=== PATIENT | female | born 1955 | race Caucasian/White ===

== ENCOUNTER 2018-01-20 10:54 | Outpatient (CLI) | payer BC, OTHER | END 2018-01-20 10:55 | disposition home or self-care (01) | LOC: BICMAMMO 10:54 | PROVIDERS: ATTEND Internal Medicine Rheumatology | DX: M81.0 Age-related osteoporosis without current pathological fracture (principal); M85.88 Other specified disorders of bone density and structure, other site | CPT/HCPCS: 77080 ==

== ENCOUNTER 2018-08-07 11:50 | Outpatient (CLI) | payer BC, OTHER ==
--- NOTE | 2018-08-07 13:36 | RAD ---
2 VIEW CHEST: Date: 08/07/18 COMPARISON: 06/29/08. INDICATION: Shortness of breath. History of tobacco use. Family history of malignant neoplasm. FINDINGS: There are multiple metallic clips at the left upper quadrant. Lungs are hyperinflated. There is mild patchy density at the lung bases, which may be related to atelectasis. Cardiac silhouette is within n ormal limits of size. There is vascular calcification and osseous degenerative change. IMPRESSION: COPD. POS: [facility]
== END 2018-08-07 11:51 | disposition home or self-care (01) ==
LOC: BICRAD 11:50
PROVIDERS: ATTEND Family Medicine
DX: R06.02 Shortness of breath (principal); J44.9 Chronic obstructive pulmonary disease, unspecified; Z72.0 Tobacco use; Z80.1 Family history of malignant neoplasm of trachea, bronchus and lung
CPT/HCPCS: 71046

== ENCOUNTER 2018-08-11 14:39 | Outpatient (CLI) | payer BC, OTHER ==
--- NOTE | 2018-08-11 16:16 | ULT ---
LEFT UPPER BUTTOCK SOFT TISSUE PROMINENCE: TECHNIQUE: Starkey-scale and color Doppler images were obtained of the palpable region of interest overlying the le ft upper buttock and lower back region. COMPARISON: CT lumbar spine dated 05/12/2014. FINDINGS: There is a large, nonvascularized, heterogeneous soft tissue and fluid collection within the subcutan eous tissues underlying the palpable regions of interest with surrounding subcutaneous edema. Overal l, the findings are suspicious for an intramuscular hematoma versus an abscess. The collection measu res approximately 6.9 x 8.2 cm. IMPRESSION: Large heterogeneous fluid collection within the subcutaneous tissues, overlying the left upper buttoc k and lower back region. Findings may reflect a large intramuscular hematoma versus an abscess. Recommend correlation with clinical examination. If clinically indicated, further evaluation with MR I with and without contrast may be helpful for additional characterization. Malignancy is not entire ly excluded but is felt to be less likely. POS: [facility]
== END 2018-08-11 14:40 | disposition home or self-care (01) ==
LOC: BICULT 14:39
PROVIDERS: ATTEND Family Medicine
DX: M25.452 Effusion, left hip (principal)
CPT/HCPCS: 76999

== ENCOUNTER 2018-08-28 14:53 | Outpatient (CLI) | payer BC, OTHER ==
--- NOTE | 2018-08-28 16:06 | RAD ---
HISTORY: Multiple myeloma. Skeletal survey including lateral views skull, AP and lateral views thoracic spine, lumbar spine, cer vical spine, AP view pelvis, AP view right and left femur and AP view right and left tibia and fibul a and AP view right and left humeri and forearms. RADIOGRAPHIC FINDINGS: An area of bone infarction or enchondroma is seen in the distal left femur. No other definite lytic bony changes seen. Extensive lumbosacral fusion hardware is present. Mid cervical changes of spondylosis seen. There is anterolisthesis of L4 on L5 and L5 on S1. IMPRESSION: No definite evidence of lytic bony changes seen to the chest. POS: [facility]
== END 2018-08-28 14:54 | disposition home or self-care (01) ==
LOC: BICRAD 14:53
PROVIDERS: ATTEND Internal Medicine Hematology & Oncology
DX: D47.2 Monoclonal gammopathy (principal); C90.00 Multiple myeloma not having achieved remission
CPT/HCPCS: 36415; 77075; 85810; 86704; 86705; 86706; 86707; 86803; 87340; 87350

== ENCOUNTER 2018-09-01 07:54 | Outpatient (CLI) | payer BC, OTHER ==
--- NOTE | 2018-09-01 10:57 | CT ---
CT OF THE CHEST AND ABDOMEN AND PELVIS WITH IV CONTRAST: INDICATION: A 63-year-old female with lymphadenopathy and chest pain between the shoulder blades. The patient lucas s a history of cholecystectomy and gastric bypass. The patient has also had umbilical hernia repair and a hysterectomy. COMPARISON: Soft tissue ultrasound examination dated 08/11/2018. FINDINGS: CHEST: There are areas of subsegmental atelectasis within the right upper lobe as well as portions of the li ngula. There is scattered emphysema. No suspicious pulmonary nodule or pleural effusion is evident. There is scattered coronary artery thoracic aorta calcifications. Contrast within the distal esophag us may reflect reflux or dysmotility. There is a 1.4 cm pretracheal lymph node on image 22 of series 2. No additional pathologically enlarged lymph node is evident. ABDOMEN AND PELVIS: There are postsurgical changes of a prior gastric bypass. No focal hepatic lesion is evident. The ga llbladder is surgically absent. There is slight hypertrophy of the left adrenal gland. There are ti ny subcentimeter hypodensities involving the kidneys too small to characterize but statistically like ly reflective of small cysts. The spleen is normal appearing. No free fluid or enlarged lymph nodes are evident. There are a few scattered diverticula involving the colon. The bladder is moderately dilated. Uteru s is surgically absent. The small bowel is of normal caliber. There is postsurgical change involving the lower lumbosacral spine. No suspicious osteolytic or oste oblastic lesion is evident. There is mild thoracolumbar scoliosis. There is a small hemangioma with in T6. There is a small peripherally enhancing fluid collection within the gluteal musculature overlying the left lower back measuring 6.4 x 1.4 cm where previously on an ultrasound examination it measured 8.2 cm in its greatest dimension. There is mild anasarca. IMPRESSION: 1. No definite acute intrathoracic or intraabdominal abnormality. 2. Subsegmental atelectasis involving the lungs. 3. Reflux versus dysmotility of the esophagus. 4. Mild anasarca. 5. Decreasing size of the fluid collection within the gluteal musculature overlying the left lower b ack and left gluteal region may reflect resolving hematoma or abscess. 6. Other chronic findings as above. POS: [facility]
[2018-09-01] MEDS ORDERED: Iopamidol 370 76% 100 ML VIAL ONE (12:46)
== END 2018-09-01 07:55 | disposition home or self-care (01) ==
LOC: CT 07:54
PROVIDERS: ATTEND Internal Medicine Hematology & Oncology
DX: D89.2 Hypergammaglobulinemia, unspecified (principal); F17.210 Nicotine dependence, cigarettes, uncomplicated; R59.1 Generalized enlarged lymph nodes; J98.11 Atelectasis; R60.1 Generalized edema
CPT/HCPCS: 71260; 74177; Q9967

== ENCOUNTER 2018-09-08 08:34 | Day surgery (SDC) | payer BC, OTHER ==
[2018-09-05 14:44] VITALS: BMI 28.0
[2018-09-08 09:07] LABS: Prothrombin Time 13.4 SEC (12.0-14.7)
[2018-09-08] MEDS ORDERED: Sodium Bicarbonate 2.5 MEQ/5 ML VIAL ONE (10:34)
[2018-09-08 12:23] VITALS: BP 141/100; TEMP 98.7
--- NOTE | 2018-09-08 13:05 | CT ---
CT GUIDED BONE BIOPSY: HISTORY: Waldenstrom's macroglobulinemia. COMPARISON: None. FINDINGS: Successful CT-guided radium biopsy of the left iliac wing. Single 11-gauge core sample was obtained. Marrow aspirate was also obtained. TECHNIQUE: Consent was obtained to perform a CT-guided random bone biopsy. The patient was placed in a prone po sition on the CT gantry. The patient has extensive hardware in the distal lumbar spine and lumbosacr al region. There is associated beam-attenuation artifact. There appears to be stranding and edema i n the overlying soft tissues Atherosclerosis of the aorta and iliac arteries is noted. Questionable mild fullness of the left int rarenal collecting system. The patient's bony structures were evaluated. Despite having fusion hardware, the left iliac wing wa s deemed appropriate. The skin was prepped and draped in a sterile fashion. 1% Lidocaine, buffered with sodium bicarbonate, was used for local anesthesia. Under CT guidance, an 11-gauge metallic troc ar was advanced such that the tip did have purchase in the outer cortex. Using the provided drill, t he inner cortex was breeched. Marrow aspirate was obtained. A total of 8 cc was collected. A 2 cm core was obtained. The patient tolerated the procedure well. No immediate or postprocedure complica tions. Postprocedure imaging does not demonstrate any significant post biopsy change. IMPRESSION: Successful CT-guided biopsy. Final pathologic diagnosis is pending. POS: [facility]
[2018-09-13 16:56] LABS: Reference Lab Name NEOGENOMICS
[2018-09-13 16:57] LABS: Ref Lab Test Ordered MYD88 MUT ANALYSIS
== END 2018-09-08 13:00 | disposition home or self-care (01) ==
LOC: CT 08:34
PROVIDERS: ATTEND Internal Medicine Hematology & Oncology
PROC: 07DR3ZX Extraction of Iliac Bone Marrow, Percutaneous Approach, Diagnostic (ICD-10-PCS; principal; 2018-09-08)
DX: C88.0 Waldenstrom macroglobulinemia (principal); D47.2 Monoclonal gammopathy; I70.0 Atherosclerosis of aorta; I70.208 Unspecified atherosclerosis of native arteries of extremities, other extremity; M19.90 Unspecified osteoarthritis, unspecified site; F41.9 Anxiety disorder, unspecified; F32.9 Major depressive disorder, single episode, unspecified; I10 Essential (primary) hypertension; E03.9 Hypothyroidism, unspecified; K21.9 Gastro-esophageal reflux disease without esophagitis; M81.0 Age-related osteoporosis without current pathological fracture; F20.9 Schizophrenia, unspecified; F17.210 Nicotine dependence, cigarettes, uncomplicated; Z79.82 Long term (current) use of aspirin; Z79.899 Other long term (current) drug therapy; Z88.6 Allergy status to analgesic agent; Z98.1 Arthrodesis status
CPT/HCPCS: 20225; 36415; 77012; 85097; 85610; 85730; 88184; 88237; 88305; 88311; 88313

== ENCOUNTER 2018-10-24 06:37 | Outpatient (CLI) | payer BC, OTHER ==
--- NOTE | 2018-10-24 08:07 | ULT ---
RIGHT UPPER QUADRANT ABDOMINAL ULTRASOUND: HISTORY: Right upper quadrant/epigastric abdominal pain and reflux. COMPARISON: None. TECHNIQUE: Multiplanar odonnell-scale and color Doppler images were obtained in a right upper quadrant abdominal ult rasound. FINDINGS: There is a wedge-shaped area of increased echogenicity in the liver, which likely represents an area of focal fatty infiltration. No suspicious liver masses are seen, and there is no intrahepatic bilia ry dilatation. The gallbladder has been removed. The common bile duct is enlarged, measuring 10 mm. This is likely a reservoir effect from prior cholecystectomy. The pancreas cannot be visualized. The right kidney is normal in echogenicity, without hydronephrosi s or calculus, and measures 10.9 cm in length. IMPRESSION: Echogenic region in the liver likely represents an area of focal fatty infiltration. POS: [facility]
== END 2018-10-24 06:38 | disposition home or self-care (01) ==
LOC: BICULT 06:37
PROVIDERS: ATTEND Physician Assistant Medical
DX: K21.9 Gastro-esophageal reflux disease without esophagitis (principal); R10.11 Right upper quadrant pain; R10.13 Epigastric pain; R63.4 Abnormal weight loss
CPT/HCPCS: 76705

== ENCOUNTER 2018-12-19 13:38 | Outpatient (CLI) | payer BC, OTHER ==
--- NOTE | 2018-12-19 15:35 | ULT ---
LEFT BACK/BUTTOCK SOFT TISSUE ULTRASOUND 12/19/18 COMPARISON: 08/11/18, CT bone marrow biopsy 09/08/18. HISTORY: Intermittent accumulation of fluid/mass in the left upper buttock/lower back. TECHNIQUE: Multiplanar odonnell scale and color Doppler images were obtained in a target ultrasound in the area of p alpable abnormality in the left gluteal region. FINDINGS: There is a complex fluid collection in the region of palpable abnormality. No flow is seen within thi s complex fluid collection. This is slightly smaller than it was on the prior examination. This sushma ures 6.0 cm in greatest dimension. IMPRESSION: Complex fluid collection at the area of palpable abnormality. POS: [facility]
== END 2018-12-19 13:39 | disposition home or self-care (01) ==
LOC: BICULT 13:38
PROVIDERS: ATTEND Specialist
DX: R22.2 Localized swelling, mass and lump, trunk (principal)
CPT/HCPCS: 76999

== ENCOUNTER 2019-02-04 11:51 | Outpatient (CLI) | payer BC, OTHER ==
--- NOTE | 2019-02-04 13:02 | MMO ---
Bilateral MAMMO Bilat Screen [facility]. CLINICAL HISTORY: Patient is 63 years old and is seen for screening. The patient has the following family history of breast cancer: maternal aunt and second cousin. The patient has a history of other cancer at age 63. The patient has a history of right Excisional Biopsy in [place] 2010 - fibroadenoma. VIEWS: The views performed were: bilateral craniocaudal with tomosynthesis and bilateral mediolateral oblique with tomosynthesis. FILMS COMPARED: The present examination has been compared to prior imaging studies performed at [facility] on 04/22/2012, 06/12/2013, 11/10/2014 and 11/15/2015. MAMMOGRAM FINDINGS: There are scattered fibroglandular densities. There is a stable mass with circumscribed margins and associated biopsy clip seen in the right breast. There are no suspicious masses, suspicious calcifications, or new areas of architectural distortion. IMPRESSION: THERE IS NO MAMMOGRAPHIC EVIDENCE OF MALIGNANCY. A ROUTINE FOLLOW-UP MAMMOGRAM IN 1 YEAR IS RECOMMENDED. THE RESULTS OF THIS EXAM WERE SENT TO THE PATIENT. ACR BI-RADS Category 2 - Benign finding MAMMOGRAPHY NOTE: 1. A negative mammogram report should not delay a biopsy if a dominant of clinically suspicious mass is present. 2. Approximately 10% to 15% of breast cancers are not detected by mammography. 3. Adenosis and dense breasts may obscure an underlying neoplasm.
== END 2019-02-04 11:52 | disposition home or self-care (01) ==
LOC: BICMAMMO 11:51
PROVIDERS: ATTEND Specialist
DX: Z12.31 Encounter for screening mammogram for malignant neoplasm of breast (principal); Z80.3 Family history of malignant neoplasm of breast; Z85.89 Personal history of malignant neoplasm of other organs and systems; Z91.89 Other specified personal risk factors, not elsewhere classified
CPT/HCPCS: 77063; 77067

== ENCOUNTER 2019-05-21 09:13 | Outpatient (CLI) | payer BC, MEDICARE, OTHER ==
--- NOTE | 2019-05-21 10:27 | BD ---
DEXA BONE DENSITY SCAN: 05/21/2019 HISTORY: Postmenopausal female undergoing screening for osteoporosis. FINDINGS: Bilateral femoral necks were assessed on this exam. BMD (g/cm2) T-SCORE LEFT FEMORAL NECK 0.714 -1.2 TOTAL PROXIMAL LEFT FEMUR 0.862 -0.7 RIGHT FEMORAL NECK 0.758 -0.8 TOTAL PROXIMAL RIGHT FEMUR 0.912 -0.2 The FRAX-WHO Fracture Risk Assessment tool reports a 10-year fracture risk in an untreated patient at 7.5%-8.3% for a major osteoporotic fracture and 0.8%-1.2% for a hip fracture. IMPRESSION: Osteopenia noted within the left femoral neck, correlating with a moderately increased risk for fract ure. POS: [facility]
== END 2019-05-21 09:14 | disposition home or self-care (01) ==
LOC: BICMAMMO 09:13
PROVIDERS: ATTEND Nurse Practitioner Family
DX: M85.852 Other specified disorders of bone density and structure, left thigh (principal)
CPT/HCPCS: 77080

== ENCOUNTER 2019-06-22 13:42 | Outpatient (CLI) | payer BC, MEDICARE, OTHER ==
--- NOTE | 2019-06-22 14:58 | MRI ---
MRI cervical spine without contrast: 06/22/2019 COMPARISON: 09/11/2013 HISTORY: Cervical spondylosis without myelopathy, neck pain TECHNIQUE: Multiplanar multisequence MR imaging of the cervical spine without contrast FINDINGS: Partially visualized adama/brainstem demonstrates new increased T2 signal intensity, most pr ominent in the region of the adama and partially imaged midbrain. Recommend dedicated MRI of the brain for further assessment. As seen on the prior examination there is a nonspecific rounded area of increased T2 within the poste rior left lateral aspect of the oropharyngeal mucosal space measuring 1 cm in transverse dimension. STIR imaging demonstrates mild edema atlantoaxial interspace. There is also edematous change centered at the facet joints on the right at C3-4 and C4-5. Motion artifact limits detailed assessment. C2-3: There is disc space narrowing and disc desiccation with mild bilateral facet hypertrophy. Mild bilateral neural foraminal stenosis. No significant central canal stenosis. C3-4: There is disc space narrowing and disc desiccation with disc bulge effacing the ventral thecal sac and abutting the ventral aspect of the cord with mild central canal stenosis. There is bilateral facet and uncovertebral osteophyte formation, left greater than right. Moderate left and mi ld right neural foraminal stenosis. C4-5: Disc space narrowing and disc desiccation with disc osteophyte complex present. There is efface ment of the ventral thecal sac with a moderate degree of central canal stenosis. Facet and uncovertebral osteophyte formation noted, right greater than left. Moderate right and mild left neura l foraminal stenosis. C5-6: There is disc space narrowing and disc desiccation with a disc osteophyte complex causing mild central canal stenosis. Mild uncovertebral and facet hypertrophy on the right with mild right neural foraminal stenosis. No left neural foraminal stenosis. C6-7: Disc space narrowing and disc desiccation. Mild bilateral facet hypertrophy. No significant ankita tral canal or neural foraminal stenosis C7-T1: No significant central canal or neural foraminal stenosis. Mild bilateral facet hypertrophy, l eft greater than right. Mild left neural foraminal stenosis. No focal area of abnormal signal intensity identified within the cervical cord. IMPRESSION: Multilevel degenerative change within the cervical spine as detailed above. Detailed asse ssment is limited on the basis of motion artifact. There is conspicuous increased T2 signal intensity within the midbrain/mid brainstem/adama, incomplete ly assessed on this examination. Recommend dedicated MRI of the brain with and without contrast. This could be degenerative, neoplastic, or ischemic in nature. CODE T
--- NOTE | 2019-06-22 15:37 | RAD ---
RADIOGRAPH CERVICAL SPINE 5 VIEWS: DATE: 06/22/2019 HISTORY: 64-year-old female with cervical spondylosis and cervicalgia, chronic. TECHNIQUE: 3 lateral views in flexion, extension, and neutral. Open-mouth view. AP view. FINDINGS: Multilevel bilateral facet DJD, including moderate. Vertebral body heights are maintained. High-grade disc space narrowing at C4-5, C5-6, and C6-7. The other disc spaces are maintained. Grade 1 anterolisthesis of C3 on C4 becomes exaggerated during flexion, and reduces upon extension. Degenerative retrolisthesis of C4 on C5. IMPRESSION: 1) high-grade cervical spondylosis, with multilevel high-grade degenerative disc disease and multilev el high-grade facet osteoarthrosis. 2) grade 1 unstable spondylolisthesis at C3-4 (due to facet osteoarthrosis).
== END 2019-06-22 13:43 | disposition home or self-care (01) ==
LOC: BICMRI 13:42
PROVIDERS: ATTEND Nurse Practitioner Family
DX: M47.812 Spondylosis without myelopathy or radiculopathy, cervical region (principal); M50.30 Other cervical disc degeneration, unspecified cervical region; M43.12 Spondylolisthesis, cervical region
CPT/HCPCS: 72050; 72141

== ENCOUNTER 2019-07-10 08:28 | Outpatient (CLI) | payer BC, MEDICARE, OTHER ==
--- NOTE | 2019-07-10 10:37 | MRI ---
EXAM: MRI of the brain without and with contrast HISTORY: Brain mass COMPARISON: CTA brain 06/30/2008 TECHNIQUE: Multiplanar multisequence MR images were obtained of the brain without and with IV contras t. FINDINGS: This exam is limited secondary to motion artifact. Scattered foci of high T2/FLAIR signal in the subcortical and periventricular white matter, as well a s the adama, are likely secondary to small vessel ischemic disease. No restricted diffusion. No abnormal enhancement. No hydronephrosis. No extra-axial fluid collection or intracranial hemorrhage. The expected flow voids are present. Corpus callosum, pituitary, and craniocervical junction are within normal limits. The calvarium and overlying soft tissues are unremarkable. The paranasal sinuses and mastoid air cells are well aerated. IMPRESSION: Small vessel ischemic disease without intracranial mass identified.
== END 2019-07-10 08:29 | disposition home or self-care (01) ==
LOC: SCSMRI 08:28
PROVIDERS: ATTEND Nurse Practitioner Family
DX: G93.9 Disorder of brain, unspecified (principal); I67.82 Cerebral ischemia
CPT/HCPCS: 70553; 82565

== ENCOUNTER 2019-10-27 17:12 | Emergency (ER) | payer BC, OTHER ==
[2019-10-27] MEDS ORDERED: cefTRIAXone\\ROCEPHIN 2 GM VIAL ONE (17:37)
[2019-10-27] MEDS ORDERED: Acetaminophen 500 MG TAB ONE (17:37)
[2019-10-27] MEDS ORDERED: Azithromycin 500 MG VIAL ONE (17:37)
[2019-10-27 17:47] LABS: Hemoglobin 15.8 g/dL (12.0-16.0); Mean Corpuscular HGB CONC 32.2 g/dL (32.0-36.0); Mean Corpuscular Hemoglobin 32.4 pg (27.0-31.0); Mean Platelet Volume 7.7 fL (7.4-10.4); Platelet Count 288 thou/uL (130-400); RBC Distribution Width 12.9 % (11.5-14.5); Red Blood Cell (RBC) Count 4.89 mill/uL (4.20-5.40); White Blood Cell (WBC) Count 20.4 thou/uL (4.8-10.8)
--- NOTE | 2019-10-27 17:58 | RAD ---
RADIOGRAPH CHEST 1 VIEW: DATE: 10/27/2019 HISTORY: 64-year-old female with fever FINDINGS: There are no airspace densities, pulmonary edema, pneumothorax, or cardiomegaly. The lateral costophr enic angles are sharp. IMPRESSION: No acute cardiopulmonary findings.
[2019-10-27 18:05] LABS: Band 16 % (5-11); Lymphocytes 2 % (21-51); MDiff Complete? YES; Metamyelocyte 1 % (0-0); Monocytes 2 % (0-10); Neutrophil 79 % (42-75); Platelet Morphology Comment Appears Adequate; Polychromasia SLIGHT = 2-3 cells (100X) (0-2/hpf); Vacuoles SLIGHT
[2019-10-27 18:07] LABS: ALT (SGPT) 24 U/L (8-55); AST (SGOT) 23 U/L (5-34); Albumin 3.6 g/dL (3.4-4.8); Alkaline Phosphatase 157 U/L (40-110); Anion Gap 14 mmol/L (10-20); BUN (Urea Nitrogen) 12 mg/dL (9.8-20.1); Bilirubin, Total 1.1 mg/dL (0.2-1.2); CK (CPK) 64 U/L (29-168); Calc. Creatinine Clearance 0 mL/min (70-130); Calcium 9.2 mg/dL (7.8-10.44); Carbon Dioxide 26 mmol/L (23-31); Chloride 100 mmol/L (98-107); Estimated GFR-MDRD 70; Globulin 3.6 g/dL (2.4-3.5); Glucose 136 mg/dL (80-115); Lipase 6 U/L (8-78); Potassium 3.5 mmol/L (3.5-5.1); Protein, Total 7.2 g/dL (6.0-8.3); Sodium 136 mmol/L (136-145)
--- NOTE | 2019-10-29 15:30 | EKG ---
Test Reason : Blood Pressure : / mmHG Vent. Rate : 105 BPM Atrial Rate : 105 BPM P-R Int : 130 ms QRS Dur : 074 ms QT Int : 314 ms P-R-T Axes : 077 -35 059 degrees QTc Int : 415 ms Sinus tachycardia Possible Left atrial enlargement Left axis deviation Abnormal ECG Confirmed by RAGHU MIRANDA, JOVITA ([id number]), communications editor ALBERT LOJA ([id number]) on 10/29/2019 3:29:13 PM Referred By: Confirmed By:JOVITA KRISHNAMURTHY MD
== END 2019-10-27 19:35 | disposition home or self-care (01) ==
LOC: ERS 17:12
DX: R50.9 Fever, unspecified (principal); I10 Essential (primary) hypertension; F41.9 Anxiety disorder, unspecified; F32.9 Major depressive disorder, single episode, unspecified; F60.0 Paranoid personality disorder; F17.210 Nicotine dependence, cigarettes, uncomplicated
CPT/HCPCS: 71045; 80053; 82550; 83605; 83690; 83880; 84484; 85025; 87040; 87077; 87149; 87186; 87804; 93005; 96365; 96367; J0456; J0696; U0001

== ENCOUNTER 2020-02-11 13:25 | Outpatient (CLI) | payer BC, MEDICARE, OTHER ==
--- NOTE | 2020-02-11 15:04 | CT ---
CT CHEST WITHOUT CONTRAST: 02/11/20 HISTORY: Lung cancer screening. Tobacco use. Current smoker. Comparison made to a CT chest dated 09/01/18. FINDINGS: There are chronic lung parenchymal changes with hyperexpansion. Stranding in the right upper lobe whi ch extends anteriorly and medially is stable. Interstitial thickening in the periphery of both lungs again noted. Stranding in the anterior left upper lobe appears stable. Stranding in the region of the lingula is stable. Fibrotic changes in the lung bases with early emphysematous change is noted. No e vidence of pulmonary mass or nodule. Mediastinum is unremarkable with no evidence of adenopathy. Smal l sliding diaphragmatic hernia with postop changes involving the stomach. Images through the upper ab domen unremarkable. There is a rounded lucent lesion involving the T6 vertebra which is a stable finding. This may repres ent hemangioma. IMPRESSION: There are chronic lung changes as described above. No pulmonary mass or nodule. Lung RADS 2. Recommen d annual low dose screening chest CT. POS: [facility]
== END 2020-02-11 13:26 | disposition home or self-care (01) ==
LOC: BICCT 13:25
PROVIDERS: ATTEND Internal Medicine Hematology & Oncology
DX: Z12.2 Encounter for screening for malignant neoplasm of respiratory organs (principal); F17.210 Nicotine dependence, cigarettes, uncomplicated; J98.4 Other disorders of lung
CPT/HCPCS: G0297

== ENCOUNTER 2021-03-14 15:10 | Outpatient (CLI) | payer BC, MEDICARE, OTHER | END 2021-03-14 15:11 | disposition home or self-care (01) | LOC: BICRAD 15:10 | PROVIDERS: ATTEND Nurse Practitioner Family | DX: M25.561 Pain in right knee (principal); M25.562 Pain in left knee ==

== ENCOUNTER 2021-11-03 07:53 | Inpatient (IN) | payer BC, MEDICARE, OTHER ==
[2021-11-03] MEDS ORDERED: Lidocaine 1% MPF 2 ML VIAL ONE (08:54)
[2021-11-03] MEDS ORDERED: Bupivacaine 0.25% 10 ML VIAL ONE (09:55)
[2021-11-03] MEDS ORDERED: Fentanyl 250 MCG/5 ML VIAL ONE (10:11)
[2021-11-03] MEDS ORDERED: Famotidine/PF 20 mg/2ml Vial ONE (10:15)
[2021-11-03] MEDS ORDERED: Esmolol 100 MG/10 ML VIAL ONE (10:29)
[2021-11-03] MEDS ORDERED: Lidocaine 1% PF 5 ML VIAL ONE (10:29)
[2021-11-03] MEDS ORDERED: Albuterol Sulfate HFA (OR ONLY) ONE (10:29)
[2021-11-03] MEDS ORDERED: Bupivacaine HCl 0.5%/Epinephrine 1:200,000/PF 30 ml Vial ONE (10:29)
[2021-11-03] MEDS ORDERED: PROPOFOL 200 MG/20 ML VIAL ONE (10:29)
[2021-11-03] MEDS ORDERED: Rocuronium Bromide 10 MG/ML (10ML VIAL) ONE (10:29)
[2021-11-03] MEDS ORDERED: Ondansetron PF 4 MG/2 ML Vial ONE (10:29)
[2021-11-03] MEDS ORDERED: SUGAMMADEX SODIUM 200 MG/2 ML VIAL ONE (11:03)
[2021-11-03] MEDS ORDERED: Ondansetron ODT 4 MG TAB PO PRN (13:43)
[2021-11-03] MEDS ORDERED: Senokot S 8.6-50 MG TAB PO PRN (13:43)
[2021-11-03] MEDS ORDERED: Lorazepam 1 MG TAB PO PRN (13:55)
[2021-11-03] MEDS ORDERED: diphenhydrAMINE 25 MG CAP PO PRN (13:55)
[2021-11-03] MEDS ORDERED: Metamucil PACK PO PRN (15:05)
[2021-11-03] MEDS ORDERED: Midazolam HCl 2 mg/2 ml Vial ONE (17:38)
[2021-11-03] MEDS ORDERED: GLUC PO SCH (21:00)
[2021-11-03] MEDS ORDERED: [UNRECOGNIZED DRUG - OTHER] PO SCH (21:00)
[2021-11-03] MEDS ORDERED: MSM PO SCH (21:00)
[2021-11-03] MEDS ORDERED: BORON PO SCH (21:00)
[2021-11-03] MEDS: Sodium Chloride 0.9% 1,000 ML IV SCH (21:22)
[2021-11-03] MEDS: Multivitamin W/ Minerals 1 TAB PO SCH (21:34)
[2021-11-03] MEDS: Amitriptyline HCl 25 MG TAB PO SCH (21:34)
[2021-11-03] MEDS: busPIRone HCl 10 MG TAB PO SCH (21:35)
[2021-11-03] MEDS: cloNIDine 0.1 MG TAB PO SCH (21:35)
[2021-11-03] MEDS: traZODone HCl 50 MG TAB PO SCH (21:36)
[2021-11-03] MEDS: Loratadine 10 MG TAB PO SCH (21:36)
[2021-11-03] MEDS: Melatonin 3 MG TAB PO SCH (21:36)
[2021-11-03] MEDS: DULoxetine 60 MG CAP PO SCH (21:36)
[2021-11-03] MEDS ORDERED: Lactated Ringer's 500 ML IV SCH (23:30)
[2021-11-03] MEDS ORDERED: Norepinephrine 8 MG in Dextrose 5% in Water 242 ML IVPB PRN (23:30)
[2021-11-04] MEDS: Levothyroxine 150 MCG TAB PO SCH (05:15)
[2021-11-04] MEDS ORDERED: Ergocalciferol 1.25 MG(50,000 UNITS) CAP PO SCH (09:00)
[2021-11-04] MEDS ORDERED: GARLIC 100 MG PO SCH (09:00)
[2021-11-04] MEDS: Calcium Carbonate 600 MG + Vit D TAB PO SCH (09:50)
[2021-11-04] MEDS: Cyanocobalamin (Vitamin B-12) 1,000 MCG TAB PO SCH (09:50)
[2021-11-04] MEDS: DULoxetine 60 MG CAP PO SCH ×2 (09:50→20:27)
[2021-11-04] MEDS: busPIRone HCl 10 MG TAB PO SCH ×3 (09:50→20:27)
[2021-11-04] MEDS: Multivitamin W/ Minerals 1 TAB PO SCH ×2 (09:50→20:28)
[2021-11-04] MEDS: Aspirin 81 mg Enteric Coated Tablet PO SCH (09:50)
[2021-11-04] MEDS: Ezetimibe 10 MG TAB PO SCH (09:50)
[2021-11-04 09:59] VITALS: BMI 55.1
[2021-11-04] MEDS: Sodium Chloride 0.9% 1,000 ML IV SCH (10:30)
[2021-11-04] MEDS: oxyCODONE 5 MG TAB PO PRN ×2 (12:34→20:28)
[2021-11-04 12:48] LABS: #Basophils 0.1 thou/uL (0.0-0.2); #Eosinphils 0.4 thou/uL (0.0-0.7); #Lymphocytes 2.4 thou/uL (1.20-3.40); #Monocytes 0.7 thou/uL (0.11-0.59); #Neutrophils 6.6 thou/uL (1.40-6.50); %Basophils 0.5 % (0.0-1.0); %Eosinophils 3.8 % (0.0-10.0); %Lymphocytes 23.3 % (21.0-51.0); %Neutrophils 65.4 % (42.0-75.0); Hemoglobin 10.4 g/dL (12.0-16.0); Mean Corpuscular HGB CONC 29.4 g/dL (32.0-36.0); Mean Platelet Volume 6.4 fL (7.4-10.4); Platelet Count 367 thou/uL (130-400); Red Blood Cell (RBC) Count 3.24 mill/uL (4.20-5.40); White Blood Cell (WBC) Count 10.1 thou/uL (4.8-10.8)
[2021-11-04 13:02] LABS: MDiff Complete? YES; Macrocytosis SLIGHT = 6-15 cells (100X) (0-5/hpf); Platelet Morphology Comment Appears Adequate; Polychromasia SLIGHT = 2-3 cells (100X) (0-2/hpf)
[2021-11-04 13:14] LABS: ALT (SGPT) 11 U/L (8-55); AST (SGOT) 23 U/L (5-34); Alkaline Phosphatase 97 U/L (40-110); Anion Gap 11 mmol/L (10-20); BUN (Urea Nitrogen) 11 mg/dL (9.8-20.1); Bilirubin, Total 0.3 mg/dL (0.2-1.2); Calc. Creatinine Clearance 124 mL/min (70-130); Calcium 8.2 mg/dL (7.8-10.44); Carbon Dioxide 29 mmol/L (23-31); Chloride 101 mmol/L (98-107); Globulin 3.1 g/dL (2.4-3.5); Glucose 84 mg/dL (80-115); Potassium 4.1 mmol/L (3.5-5.1); Protein, Total 6.1 g/dL (5.8-8.1); Sodium 137 mmol/L (136-145)
[2021-11-04] MEDS: Amlodipine 10 MG TAB PO SCH (14:47)
[2021-11-04] MEDS: cloNIDine 0.1 MG TAB PO SCH ×2 (14:47→20:29)
[2021-11-04] MEDS: Lisinopril 20 MG TAB PO SCH (14:47)
[2021-11-04] MEDS: fentaNYL 75 mcg/hour Patch TD SCH (15:15)
[2021-11-04] MEDS: Melatonin 3 MG TAB PO SCH (20:27)
[2021-11-04] MEDS: Enoxaparin Sodium 40 MG/0.4 ML SYRINGE SC SCH (20:27)
[2021-11-04] MEDS: traZODone HCl 50 MG TAB PO SCH (20:28)
[2021-11-04] MEDS: Amitriptyline HCl 25 MG TAB PO SCH (20:28)
[2021-11-04] MEDS: Loratadine 10 MG TAB PO SCH (20:28)
[2021-11-05 03:34] LABS: #Eosinphils 0.3 thou/uL (0.0-0.7); #Lymphocytes 2.4 thou/uL (1.20-3.40); #Monocytes 0.7 thou/uL (0.11-0.59); #Neutrophils 5.7 thou/uL (1.40-6.50); %Basophils 0.4 % (0.0-1.0); %Eosinophils 3.5 % (0.0-10.0); %Lymphocytes 26.3 % (21.0-51.0); %Monocytes 7.9 % (0.0-10.0); Hemoglobin 9.2 g/dL (12.0-16.0); Mean Corpuscular HGB CONC 29.4 g/dL (32.0-36.0); Mean Corpuscular Hemoglobin 31.5 pg (27.0-31.0); Mean Platelet Volume 6.2 fL (7.4-10.4); Platelet Count 339 thou/uL (130-400); RBC Distribution Width 12.7 % (11.5-14.5); Red Blood Cell (RBC) Count 2.91 mill/uL (4.20-5.40); White Blood Cell (WBC) Count 9.2 thou/uL (4.8-10.8)
[2021-11-05 03:56] LABS: ALT (SGPT) 9 U/L (8-55); AST (SGOT) 19 U/L (5-34); Albumin 2.6 g/dL (3.4-4.8); Alkaline Phosphatase 84 U/L (40-110); Anion Gap 9 mmol/L (10-20); BUN (Urea Nitrogen) 9 mg/dL (9.8-20.1); Bilirubin, Total 0.3 mg/dL (0.2-1.2); Calc. Creatinine Clearance 139 mL/min (70-130); Carbon Dioxide 35 mmol/L (23-31); Chloride 100 mmol/L (98-107); Globulin 2.8 g/dL (2.4-3.5); Glucose 94 mg/dL (80-115); Protein, Total 5.4 g/dL (5.8-8.1); Sodium 140 mmol/L (136-145)
[2021-11-05] MEDS: Levothyroxine 150 MCG TAB PO SCH (05:39)
[2021-11-05] MEDS: oxyCODONE 5 MG TAB PO PRN ×4 (05:39→21:31)
[2021-11-05] MEDS: Multivitamin W/ Minerals 1 TAB PO SCH ×2 (09:34→21:35)
[2021-11-05] MEDS: DULoxetine 60 MG CAP PO SCH ×2 (09:34→21:34)
[2021-11-05] MEDS: Amlodipine 10 MG TAB PO SCH (09:35)
[2021-11-05] MEDS: cloNIDine 0.1 MG TAB PO SCH ×2 (09:35→21:38)
[2021-11-05] MEDS: Cyanocobalamin (Vitamin B-12) 1,000 MCG TAB PO SCH (09:35)
[2021-11-05] MEDS: busPIRone HCl 10 MG TAB PO SCH ×3 (09:35→21:34)
[2021-11-05] MEDS: Calcium Carbonate 600 MG + Vit D TAB PO SCH (09:35)
[2021-11-05] MEDS: Ezetimibe 10 MG TAB PO SCH (09:35)
[2021-11-05] MEDS: Lisinopril 20 MG TAB PO SCH (09:35)
[2021-11-05] MEDS: Aspirin 81 mg Enteric Coated Tablet PO SCH (09:36)
[2021-11-05] MEDS: Enoxaparin Sodium 40 MG/0.4 ML SYRINGE SC SCH ×2 (09:36→21:38)
[2021-11-05] MEDS: traZODone HCl 50 MG TAB PO SCH (21:33)
[2021-11-05] MEDS: Amitriptyline HCl 25 MG TAB PO SCH (21:35)
[2021-11-05] MEDS: Melatonin 3 MG TAB PO SCH (21:36)
[2021-11-05] MEDS: Loratadine 10 MG TAB PO SCH (21:36)
[2021-11-06 04:28] LABS: #Eosinphils 0.4 thou/uL (0.0-0.7); #Lymphocytes 2.3 thou/uL (1.20-3.40); #Monocytes 0.7 thou/uL (0.11-0.59); #Neutrophils 4.3 thou/uL (1.40-6.50); %Basophils 0.3 % (0.0-1.0); %Eosinophils 4.6 % (0.0-10.0); %Lymphocytes 30.3 % (21.0-51.0); %Neutrophils 55.9 % (42.0-75.0); Hemoglobin 9.7 g/dL (12.0-16.0); Mean Corpuscular HGB CONC 31.7 g/dL (32.0-36.0); Mean Corpuscular Hemoglobin 33.8 pg (27.0-31.0); Mean Platelet Volume 6.6 fL (7.4-10.4); Platelet Count 318 thou/uL (130-400); RBC Distribution Width 12.6 % (11.5-14.5); Red Blood Cell (RBC) Count 2.88 mill/uL (4.20-5.40); White Blood Cell (WBC) Count 7.7 thou/uL (4.8-10.8)
[2021-11-06 04:49] LABS: ALT (SGPT) 8 U/L (8-55); AST (SGOT) 18 U/L (5-34); Albumin 2.5 g/dL (3.4-4.8); Alkaline Phosphatase 80 U/L (40-110); Anion Gap 10 mmol/L (10-20); BUN (Urea Nitrogen) 6 mg/dL (9.8-20.1); Bilirubin, Total 0.3 mg/dL (0.2-1.2); Calc. Creatinine Clearance 153 mL/min (70-130); Calcium 8.2 mg/dL (7.8-10.44); Carbon Dioxide 36 mmol/L (23-31); Chloride 99 mmol/L (98-107); Globulin 2.8 g/dL (2.4-3.5); Glucose 100 mg/dL (80-115); Potassium 3.8 mmol/L (3.5-5.1); Protein, Total 5.3 g/dL (5.8-8.1); Sodium 141 mmol/L (136-145)
[2021-11-06] MEDS: oxyCODONE 5 MG TAB PO PRN ×3 (05:36→19:46)
[2021-11-06] MEDS: Levothyroxine 150 MCG TAB PO SCH (05:36)
[2021-11-06] MEDS: Calcium Carbonate 600 MG + Vit D TAB PO SCH (09:52)
[2021-11-06] MEDS: busPIRone HCl 10 MG TAB PO SCH ×3 (09:52→19:55)
[2021-11-06] MEDS: Enoxaparin Sodium 40 MG/0.4 ML SYRINGE SC SCH ×2 (09:52→19:56)
[2021-11-06] MEDS: Amlodipine 10 MG TAB PO SCH (09:53)
[2021-11-06] MEDS: DULoxetine 60 MG CAP PO SCH ×2 (09:53→19:56)
[2021-11-06] MEDS: Ezetimibe 10 MG TAB PO SCH (09:53)
[2021-11-06] MEDS: Aspirin 81 mg Enteric Coated Tablet PO SCH (09:53)
[2021-11-06] MEDS: Multivitamin W/ Minerals 1 TAB PO SCH ×2 (09:53→19:56)
[2021-11-06] MEDS: cloNIDine 0.1 MG TAB PO SCH ×2 (09:53→21:34)
[2021-11-06] MEDS: Lisinopril 20 MG TAB PO SCH (09:53)
[2021-11-06] MEDS: Cyanocobalamin (Vitamin B-12) 1,000 MCG TAB PO SCH (09:54)
[2021-11-06] MEDS: Loratadine 10 MG TAB PO SCH (19:54)
[2021-11-06] MEDS: traZODone HCl 50 MG TAB PO SCH (19:55)
[2021-11-06] MEDS: Amitriptyline HCl 25 MG TAB PO SCH (19:55)
[2021-11-06] MEDS ORDERED: Preparation H HC 1% Cream 26 GM TUBE TOP SCH (21:00)
[2021-11-06] MEDS: Melatonin 3 MG TAB PO SCH (21:35)
[2021-11-07] MEDS: oxyCODONE 5 MG TAB PO PRN ×5 (01:31→20:52)
[2021-11-07] MEDS: Acetaminophen 325 MG TAB PO PRN (04:13)
[2021-11-07 04:33] LABS: #Eosinphils 0.4 thou/uL (0.0-0.7); #Lymphocytes 2.5 thou/uL (1.20-3.40); #Monocytes 0.8 thou/uL (0.11-0.59); #Neutrophils 4.9 thou/uL (1.40-6.50); %Basophils 0.5 % (0.0-1.0); %Eosinophils 4.3 % (0.0-10.0); %Lymphocytes 28.8 % (21.0-51.0); %Monocytes 9.4 % (0.0-10.0); %Neutrophils 57.1 % (42.0-75.0); Hemoglobin 9.5 g/dL (12.0-16.0); Mean Corpuscular HGB CONC 30.4 g/dL (32.0-36.0); Mean Corpuscular Hemoglobin 32.3 pg (27.0-31.0); Mean Platelet Volume 6.2 fL (7.4-10.4); Platelet Count 365 thou/uL (130-400); RBC Distribution Width 12.9 % (11.5-14.5); Red Blood Cell (RBC) Count 2.92 mill/uL (4.20-5.40); White Blood Cell (WBC) Count 8.7 thou/uL (4.8-10.8)
[2021-11-07 04:57] LABS: ALT (SGPT) 9 U/L (8-55); AST (SGOT) 16 U/L (5-34); Albumin 2.7 g/dL (3.4-4.8); Alkaline Phosphatase 88 U/L (40-110); Anion Gap 10 mmol/L (10-20); BUN (Urea Nitrogen) 4 mg/dL (9.8-20.1); Bilirubin, Total 0.3 mg/dL (0.2-1.2); Calc. Creatinine Clearance 144 mL/min (70-130); Calcium 8.2 mg/dL (7.8-10.44); Carbon Dioxide 37 mmol/L (23-31); Chloride 98 mmol/L (98-107); Globulin 2.8 g/dL (2.4-3.5); Glucose 93 mg/dL (80-115); Protein, Total 5.5 g/dL (5.8-8.1); Sodium 141 mmol/L (136-145)
[2021-11-07] MEDS: Levothyroxine 150 MCG TAB PO SCH (05:32)
[2021-11-07] MEDS: Azithromycin 250 MG TAB PO SCH (08:53)
[2021-11-07] MEDS: Ezetimibe 10 MG TAB PO SCH (08:53)
[2021-11-07] MEDS: Enoxaparin Sodium 40 MG/0.4 ML SYRINGE SC SCH ×2 (08:53→20:51)
[2021-11-07] MEDS: DULoxetine 60 MG CAP PO SCH ×2 (08:54→20:53)
[2021-11-07] MEDS: Calcium Carbonate 600 MG + Vit D TAB PO SCH (08:54)
[2021-11-07] MEDS: busPIRone HCl 10 MG TAB PO SCH ×3 (08:54→20:53)
[2021-11-07] MEDS: Multivitamin W/ Minerals 1 TAB PO SCH ×2 (08:56→20:52)
[2021-11-07] MEDS: Cyanocobalamin (Vitamin B-12) 1,000 MCG TAB PO SCH (08:56)
[2021-11-07] MEDS: Proctozone-HC 30 GM TUBE TOP SCH ×2 (08:56→20:54)
[2021-11-07] MEDS: Aspirin 81 mg Enteric Coated Tablet PO SCH (08:56)
[2021-11-07] MEDS: cloNIDine 0.1 MG TAB PO SCH ×2 (08:59→20:53)
[2021-11-07] MEDS: Lisinopril 20 MG TAB PO SCH (08:59)
[2021-11-07] MEDS: Amlodipine 10 MG TAB PO SCH (08:59)
[2021-11-07] MEDS: fentaNYL 75 mcg/hour Patch TD SCH (14:45)
[2021-11-07] MEDS: Melatonin 3 MG TAB PO SCH (20:51)
[2021-11-07] MEDS: traZODone HCl 50 MG TAB PO SCH (20:53)
[2021-11-07] MEDS: Amitriptyline HCl 25 MG TAB PO SCH (20:53)
[2021-11-07] MEDS: Loratadine 10 MG TAB PO SCH (20:53)
[2021-11-07] MEDS ORDERED: Lorazepam 1 MG TAB PO PRN (22:53)
[2021-11-08] MEDS: oxyCODONE 5 MG TAB PO PRN ×5 (04:03→20:48)
[2021-11-08] MEDS: Levothyroxine 150 MCG TAB PO SCH (05:56)
[2021-11-08] MEDS: Ezetimibe 10 MG TAB PO SCH (08:04)
[2021-11-08] MEDS: Multivitamin W/ Minerals 1 TAB PO SCH ×2 (08:05→20:46)
[2021-11-08] MEDS: Calcium Carbonate 600 MG + Vit D TAB PO SCH (08:05)
[2021-11-08] MEDS: DULoxetine 60 MG CAP PO SCH ×2 (08:09→20:46)
[2021-11-08] MEDS: Aspirin 81 mg Enteric Coated Tablet PO SCH (08:10)
[2021-11-08] MEDS: busPIRone HCl 10 MG TAB PO SCH ×3 (08:10→20:47)
[2021-11-08] MEDS: Azithromycin 250 MG TAB PO SCH (08:10)
[2021-11-08] MEDS: Proctozone-HC 30 GM TUBE TOP SCH ×2 (08:12→20:49)
[2021-11-08] MEDS: Enoxaparin Sodium 40 MG/0.4 ML SYRINGE SC SCH ×2 (08:13→20:49)
[2021-11-08] MEDS: Cyanocobalamin (Vitamin B-12) 1,000 MCG TAB PO SCH (08:13)
[2021-11-08] MEDS: cloNIDine 0.1 MG TAB PO SCH ×2 (10:03→20:48)
[2021-11-08] MEDS: Amlodipine 10 MG TAB PO SCH (10:03)
[2021-11-08] MEDS: Lisinopril 20 MG TAB PO SCH (10:04)
[2021-11-08] MEDS: Melatonin 3 MG TAB PO SCH (20:46)
[2021-11-08] MEDS: traZODone HCl 50 MG TAB PO SCH (20:46)
[2021-11-08] MEDS: Amitriptyline HCl 25 MG TAB PO SCH (20:47)
[2021-11-08] MEDS: Loratadine 10 MG TAB PO SCH (20:48)
[2021-11-09] MEDS: oxyCODONE 5 MG TAB PO PRN ×5 (01:04→23:46)
[2021-11-09] MEDS: Levothyroxine 150 MCG TAB PO SCH (05:28)
[2021-11-09] MEDS: busPIRone HCl 10 MG TAB PO SCH ×3 (09:25→20:28)
[2021-11-09] MEDS: Ezetimibe 10 MG TAB PO SCH (09:25)
[2021-11-09] MEDS: Calcium Carbonate 600 MG + Vit D TAB PO SCH (09:25)
[2021-11-09] MEDS: Enoxaparin Sodium 40 MG/0.4 ML SYRINGE SC SCH ×2 (09:25→20:29)
[2021-11-09] MEDS: DULoxetine 60 MG CAP PO SCH ×2 (09:26→20:30)
[2021-11-09] MEDS: cloNIDine 0.1 MG TAB PO SCH ×3 (09:26→20:32)
[2021-11-09] MEDS: Azithromycin 250 MG TAB PO SCH (09:27)
[2021-11-09] MEDS: Lisinopril 20 MG TAB PO SCH (09:27)
[2021-11-09] MEDS: Cyanocobalamin (Vitamin B-12) 1,000 MCG TAB PO SCH (09:27)
[2021-11-09] MEDS: Aspirin 81 mg Enteric Coated Tablet PO SCH (09:27)
[2021-11-09] MEDS: Multivitamin W/ Minerals 1 TAB PO SCH ×2 (09:27→20:28)
[2021-11-09] MEDS: Amlodipine 10 MG TAB PO SCH (09:27)
[2021-11-09] MEDS: Proctozone-HC 30 GM TUBE TOP SCH ×2 (09:37→21:52)
[2021-11-09] MEDS: Acetaminophen 325 MG TAB PO PRN ×2 (13:22→20:39)
[2021-11-09] MEDS: Melatonin 3 MG TAB PO SCH (20:29)
[2021-11-09] MEDS: Amitriptyline HCl 25 MG TAB PO SCH (20:30)
[2021-11-09] MEDS: Loratadine 10 MG TAB PO SCH (20:30)
[2021-11-09] MEDS: traZODone HCl 50 MG TAB PO SCH (20:30)
[2021-11-10] MEDS: oxyCODONE 5 MG TAB PO PRN ×2 (04:30→08:42)
[2021-11-10] MEDS: Levothyroxine 150 MCG TAB PO SCH (05:45)
[2021-11-10] MEDS: cloNIDine 0.1 MG TAB PO SCH (07:56)
[2021-11-10 08:13] VITALS: TEMP 98.3
[2021-11-10] MEDS: Enoxaparin Sodium 40 MG/0.4 ML SYRINGE SC SCH (08:36)
[2021-11-10] MEDS: Ezetimibe 10 MG TAB PO SCH (08:37)
[2021-11-10] MEDS: Multivitamin W/ Minerals 1 TAB PO SCH (08:37)
[2021-11-10] MEDS: Cyanocobalamin (Vitamin B-12) 1,000 MCG TAB PO SCH (08:37)
[2021-11-10] MEDS: DULoxetine 60 MG CAP PO SCH (08:41)
[2021-11-10] MEDS: Calcium Carbonate 600 MG + Vit D TAB PO SCH (08:42)
[2021-11-10] MEDS: Azithromycin 250 MG TAB PO SCH (08:44)
[2021-11-10] MEDS: Aspirin 81 mg Enteric Coated Tablet PO SCH (08:45)
[2021-11-10] MEDS: busPIRone HCl 10 MG TAB PO SCH (08:45)
[2021-11-10] MEDS: Lisinopril 20 MG TAB PO SCH (08:46)
[2021-11-10 08:47] VITALS: BP 101/69
[2021-11-10] MEDS: Amlodipine 10 MG TAB PO SCH (08:47)
[2021-11-10] MEDS: Proctozone-HC 30 GM TUBE TOP SCH (08:56)
[2021-11-10] MEDS ORDERED: Konsyl 6 gm Packet PO SCH (09:00)
[2021-11-10] MEDS ORDERED: CHOLECALCIFEROL 50000 UNIT PO SCH (09:00)
[2021-11-10] MEDS ORDERED: Metamucil PACK PO SCH (09:00)
== END 2021-11-10 11:10 | DRG 510 ==
LOC: SDC 07:53 → CCU 13:43 → IMCU/EMU 11-04 14:29 → SURG B 11-08 11:34
PROVIDERS: ADMIT Orthopaedic Surgery; ATTEND Orthopaedic Surgery
PROC: 0PSJ04Z Reposition Left Radius with Internal Fixation Device, Open Approach (ICD-10-PCS; principal; 2021-11-03)
DX: S52.572A Other intraarticular fracture of lower end of left radius, initial encounter for closed fracture (principal); J96.21 Acute and chronic respiratory failure with hypoxia; Z68.43 Body mass index [BMI] 50.0-59.9, adult; F41.9 Anxiety disorder, unspecified; E78.5 Hyperlipidemia, unspecified; I10 Essential (primary) hypertension; G47.30 Sleep apnea, unspecified; E03.9 Hypothyroidism, unspecified; J44.9 Chronic obstructive pulmonary disease, unspecified; J30.2 Other seasonal allergic rhinitis; M06.9 Rheumatoid arthritis, unspecified; G89.4 Chronic pain syndrome; F10.20 Alcohol dependence, uncomplicated; K21.9 Gastro-esophageal reflux disease without esophagitis; M85.80 Other specified disorders of bone density and structure, unspecified site; E78.00 Pure hypercholesterolemia, unspecified; F32.9 Major depressive disorder, single episode, unspecified; F11.90 Opioid use, unspecified, uncomplicated; E66.01 Morbid (severe) obesity due to excess calories; C88.0 Waldenstrom macroglobulinemia; I95.9 Hypotension, unspecified; I25.10 Atherosclerotic heart disease of native coronary artery without angina pectoris; Y83.9 Surgical procedure, unspecified as the cause of abnormal reaction of the patient, or of later complication, without mention of misadventure at the time of the procedure; K64.9 Unspecified hemorrhoids; Y70.8 Miscellaneous anesthesiology devices associated with adverse incidents, not elsewhere classified; G47.33 Obstructive sleep apnea (adult) (pediatric); Z20.822 Contact with and (suspected) exposure to COVID-19; Z98.84 Bariatric surgery status; Z90.710 Acquired absence of both cervix and uterus; Z98.1 Arthrodesis status; Z88.6 Allergy status to analgesic agent; Z98.890 Other specified postprocedural states; Z83.3 Family history of diabetes mellitus; Z79.890 Hormone replacement therapy; Z79.82 Long term (current) use of aspirin; Z79.899 Other long term (current) drug therapy; Z88.8 Allergy status to other drugs, medicaments and biological substances; Z87.891 Personal history of nicotine dependence; Z81.1 Family history of alcohol abuse and dependence; Z82.49 Family history of ischemic heart disease and other diseases of the circulatory system; Z80.1 Family history of malignant neoplasm of trachea, bronchus and lung; Z01.818 Encounter for other preprocedural examination
CPT/HCPCS: 36415; 36416; 71045; 76000; 80053; 85025; 85027; 85610; 85730; 93005; 94640; 94660; C1713; C1776; J1650; J2250; J2405; J2704; J3010; J7050; J7120; J7620; S0020; S0028; U0003; U0005

== ENCOUNTER 2022-02-22 10:24 | Outpatient (CLI) | payer BC, MEDICARE, OTHER | END 2022-02-22 10:25 | disposition home or self-care (01) | LOC: BICMAMMO 10:24 | PROVIDERS: ATTEND Internal Medicine Hematology & Oncology | DX: Z12.31 Encounter for screening mammogram for malignant neoplasm of breast (principal); Z12.2 Encounter for screening for malignant neoplasm of respiratory organs; F17.210 Nicotine dependence, cigarettes, uncomplicated; C88.0 Waldenstrom macroglobulinemia; D47.2 Monoclonal gammopathy; Z85.89 Personal history of malignant neoplasm of other organs and systems; Z85.3 Personal history of malignant neoplasm of breast; Z80.3 Family history of malignant neoplasm of breast | CPT/HCPCS: 71271; 77063; 77067 ==

== ENCOUNTER 2023-07-26 11:16 | Outpatient (CLI) | payer MEDICARE, OTHER | END 2023-07-26 11:17 | disposition home or self-care (01) | LOC: BICMAMMO 11:16 | PROVIDERS: ATTEND Specialist | DX: Z12.31 Encounter for screening mammogram for malignant neoplasm of breast (principal); N64.89 Other specified disorders of breast; Z80.3 Family history of malignant neoplasm of breast; Z85.89 Personal history of malignant neoplasm of other organs and systems | CPT/HCPCS: 77063; 77067 ==

== ENCOUNTER 2023-07-31 21:48 | Inpatient (IN) | payer MEDICARE, OTHER ==
[2023-07-31 22:28] LABS: #Basophils 0.1 thou/uL (0.0-0.2); #Eosinphils 0.9 thou/uL (0.0-0.7); #Neutrophils 14.2 thou/uL (1.40-6.50); %Basophils 0.5 % (0.0-1.0); %Eosinophils 4.2 % (0.0-10.0); %Lymphocytes 19.7 % (21.0-51.0); %Monocytes 4.8 % (0.0-10.0); %Neutrophils 70.2 % (42.0-75.0); Hematocrit 38.5 % (36.0-47.0); Hemoglobin 12.7 g/dL (12.0-16.0); Mean Corpuscular Hemoglobin 31.2 pg (27.0-31.0); Mean Corpuscular Volume 94.6 fl (78.0-98.0); Mean Platelet Volume 9.3 fL (7.4-10.4); Platelet Count 617 10x3/uL (130-400); RBC Distribution Width 15.9 % (11.5-14.5); Red Blood Cell (RBC) Count 4.07 mill/uL (4.20-5.40); White Blood Cell (WBC) Count 20.2 10x3/uL (4.8-10.8)
[2023-07-31] MEDS ORDERED: Furosemide 40 MG (4 mL) VIAL ONE (22:44)
[2023-07-31 22:51] LABS: Digoxin 0.46 ng/mL (0.8-2.0)
[2023-07-31 23:01] LABS: ALT (SGPT) 15 U/L (8-55); AST (SGOT) 21 U/L (5-34); Albumin 2.9 g/dL (3.4-4.8); Alkaline Phosphatase 113 U/L (40-110); Anion Gap 14 mmol/L (10-20); BUN (Urea Nitrogen) 5 mg/dL (9.8-20.1); Bilirubin, Total 0.3 mg/dL (0.2-1.2); Calc. Creatinine Clearance 0 mL/min (70-130); Calcium 8.4 mg/dL (7.8-10.44); Carbon Dioxide 32 mmol/L (23-31); Chloride 96 mmol/L (98-107); Estimated GFR 73; Globulin 2.9 g/dL (2.4-3.5); Glucose 100 mg/dL (80-115); Magnesium 1.9 mg/dL (1.6-2.6); Potassium 3.5 mmol/L (3.5-5.1); Protein, Total 5.8 g/dL (5.8-8.1); Sodium 138 mmol/L (136-145)
[2023-07-31 23:02] LABS: Troponin I 0.022 ng/mL (< 0.028)
[2023-07-31 23:28] LABS: Prothrombin Time 13.9 sec (12.0-14.7)
[2023-07-31 23:29] LABS: PTT 26.5 sec (22.9-36.1)
[2023-08-01] MEDS ORDERED: dilTIAZem 25 MG/5 ML VIAL ONE (01:33)
[2023-08-01] MEDS ORDERED: dilTIAZem 125 MG/25 ML SDV ONE (02:35)
[2023-08-01] MEDS ORDERED: Enoxaparin 30 MG (0.3 mL) SYRINGE ONE (03:06)
[2023-08-01] MEDS ORDERED: Enoxaparin 100 MG (1 mL) SYRINGE ONE (03:06)
[2023-08-01] MEDS ORDERED: Sodium Chloride 0.9% 100 ML ONE (03:06)
[2023-08-01] MEDS ORDERED: cefTRIAXone (ROCEPHIN) 1 GM VIAL ONE (03:07)
[2023-08-01] MEDS ORDERED: Nystatin Powder 15 GM BOT TOP PRN (04:35)
[2023-08-01] MEDS ORDERED: Communication Order-Pharmacy FS SCH (04:36)
[2023-08-01] MEDS ORDERED: Ondansetron PF 4 MG/2 ML Vial IVP PRN (04:40)
[2023-08-01] MEDS ORDERED: Ondansetron ODT 4 MG TAB PO PRN (04:40)
[2023-08-01] MEDS ORDERED: Electrolyte Replacement Protocol 1 EACH FS SCH (04:45)
[2023-08-01] MEDS ORDERED: dilTIAZem 125 MG in Sodium Chloride 0.9% 100 ML IVPB SCH (04:45)
[2023-08-01 06:06] LABS: Bacteria/HPF 2+ HPF (None Seen); Bilirubin Negative (Negative); Blood, Urine Negative (Negative); CAUTI Indications for Culture Pelvic or flank pain; Clarity Clear (Clear); Glucose, Urine (Dipstick) Normal (Negative); Ketone, Urine Negative (Negative); Leukocyte Negative Leu/uL (Negative); Nitrite 2+ (Negative); Protein, Urine (Dipstick) Negative (Neg-Trace); RBC/HPF None Seen HPF (0-3); Specific Gravity, Urine 1.015 (1.002-1.036); Urine Culture Reflex No No; Urobilinogen Normal mg/dL (Less than 2); WBC/HPF 0-3 HPF (0-3); pH, Urine 6.5 (5.0-9.0)
[2023-08-01] MEDS ORDERED: Amiodarone 150 MG in Dextrose 5% in Water 100 ML IVPB SCH (07:00)
[2023-08-01] MEDS ORDERED: Amiodarone 450 MG in Dextrose 5% in Water 250 ML IVPB SCH (07:00)
[2023-08-01 07:02] VITALS: BMI 47.1
[2023-08-01 07:36] LABS: Magnesium 1.8 mg/dL (1.6-2.6)
[2023-08-01 07:38] LABS: Troponin I 0.039 ng/mL (< 0.028)
[2023-08-01] MEDS ORDERED: Potassium Chloride 20 MEQ TAB PO SCH (08:00)
[2023-08-01] MEDS: dilTIAZem 125 MG in Sodium Chloride 0.9% 100 ML IVPB SCH (08:00)
[2023-08-01] MEDS ORDERED: Magnesium 2 GM/50 ML(in water) 2 GM in Premix 1 BAG IVPB SCH (08:00)
[2023-08-01] MEDS ORDERED: Potassium Chloride 20 MEQ TAB ONE (08:36)
[2023-08-01] MEDS ORDERED: Magnesium 2 GM/50 ML BAG (IN WATER) ONE (08:36)
[2023-08-01] MEDS ORDERED: Enoxaparin 80 MG (0.8 mL) SYRINGE ONE (08:37)
[2023-08-01] MEDS ORDERED: Enoxaparin 40 MG (0.4 mL) SYRINGE ONE (08:37)
[2023-08-01] MEDS ORDERED: Enoxaparin 120 MG/0.8 ML SYRINGE SC SCH (09:00)
[2023-08-01] MEDS ORDERED: Enoxaparin 80 MG (0.8 mL) SYRINGE SC SCH (09:00)
[2023-08-01] MEDS ORDERED: Iopamidol-370 76% 500 ML MDV (1 ML CHARGE) ONE (09:58)
[2023-08-01] MEDS ORDERED: Ipratropium/Albuterol 3 ML NEB NEB PRN (10:58)
[2023-08-01] MEDS ORDERED: Levothyroxine Sodium 50 MCG TAB PO SCH (11:00)
[2023-08-01] MEDS ORDERED: Levothyroxine Sodium 125 MCG TAB PO SCH (11:30)
[2023-08-01] MEDS ORDERED: dilTIAZem SR 90 MG CAP PO SCH (12:15)
[2023-08-01] MEDS: Enoxaparin 120 MG/0.8 ML SYRINGE SC SCH (14:32)
[2023-08-01 15:07] LABS: Troponin I 0.017 ng/mL (< 0.028)
[2023-08-01] MEDS: Budesonide 0.5 MG/2 ML NEB INH SCH (22:02)
[2023-08-01] MEDS: dilTIAZem ER 60 MG CAP PO SCH (22:10)
[2023-08-02] MEDS: dilTIAZem 125 MG in Sodium Chloride 0.9% 100 ML IVPB SCH (00:15)
[2023-08-02] MEDS: cefTRIAXone\\ROCEPHIN 1 GM in Sodium Chloride 0.9% 100 ML IVPB SCH (04:01)
[2023-08-02] MEDS: Enoxaparin 120 MG/0.8 ML SYRINGE SC SCH (04:01)
[2023-08-02] MEDS: Budesonide 0.5 MG/2 ML NEB INH SCH ×2 (05:57→19:51)
[2023-08-02] MEDS: Levothyroxine Sodium 125 MCG TAB PO SCH (05:57)
[2023-08-02] MEDS ORDERED: Levothyroxine Sodium 25 MCG TAB PO SCH (06:00)
[2023-08-02 06:35] LABS: #Basophils 0.1 thou/uL (0.0-0.2); #Monocytes 0.9 thou/uL (0.11-0.59); #Neutrophils 11.9 thou/uL (1.40-6.50); %Basophils 0.6 % (0.0-1.0); %Eosinophils 5.7 % (0.0-10.0); %Lymphocytes 18.5 % (21.0-51.0); %Neutrophils 69.6 % (42.0-75.0); Hematocrit 37.4 % (36.0-47.0); Hemoglobin 11.8 g/dL (12.0-16.0); Mean Corpuscular HGB CONC 31.6 g/dL (32.0-36.0); Mean Corpuscular Hemoglobin 30.6 pg (27.0-31.0); Mean Corpuscular Volume 96.9 fl (78.0-98.0); Mean Platelet Volume 11.4 fL (7.4-10.4); Platelet Count 459 10x3/uL (130-400); RBC Distribution Width 15.9 % (11.5-14.5); Red Blood Cell (RBC) Count 3.86 mill/uL (4.20-5.40); White Blood Cell (WBC) Count 17.1 10x3/uL (4.8-10.8)
[2023-08-02 07:01] LABS: Anion Gap 16 mmol/L (10-20); BUN (Urea Nitrogen) 5 mg/dL (9.8-20.1); Calc. Creatinine Clearance 117 mL/min (70-130); Calcium 8.1 mg/dL (7.8-10.44); Carbon Dioxide 30 mmol/L (23-31); Chloride 94 mmol/L (98-107); Estimated GFR 79; Glucose 115 mg/dL (80-115); Potassium 3.9 mmol/L (3.5-5.1); Sodium 136 mmol/L (136-145)
[2023-08-02] MEDS: dilTIAZem ER 60 MG CAP PO SCH ×2 (08:13→21:27)
[2023-08-02] MEDS ORDERED: dilTIAZem 125 MG in Sodium Chloride 0.9% 100 ML IVPB SCH (08:30)
[2023-08-02] MEDS: Apixaban 5 MG TAB PO SCH ×2 (08:46→21:27)
[2023-08-02] MEDS ORDERED: Levothyroxine Sodium 100 MCG TAB PO SCH (09:00)
[2023-08-02] MEDS ORDERED: Enoxaparin 120 MG/0.8 ML SYRINGE SC SCH (09:00)
[2023-08-02] MEDS: Acetaminophen 325 MG TAB PO PRN ×2 (13:16→21:25)
[2023-08-03] MEDS ORDERED: oxyCODONE 5 MG TAB PO PRN (03:51)
[2023-08-03] MEDS: cefTRIAXone\\ROCEPHIN 1 GM in Sodium Chloride 0.9% 100 ML IVPB SCH (04:00)
[2023-08-03] MEDS: Levothyroxine Sodium 125 MCG TAB PO SCH (07:03)
[2023-08-03] MEDS: Budesonide 0.5 MG/2 ML NEB INH SCH (07:33)
[2023-08-03 07:40] VITALS: TEMP 97.8
[2023-08-03] MEDS: Apixaban 5 MG TAB PO SCH (08:22)
[2023-08-03] MEDS: dilTIAZem ER 60 MG CAP PO SCH (08:22)
[2023-08-03 13:18] VITALS: BP 141/76
[2023-08-03] MEDS: Acetaminophen 325 MG TAB PO PRN (14:12)
== END 2023-08-03 16:04 | disposition home or self-care (01) | DRG 309 ==
LOC: ERS 21:48 → ERHOLD 08-01 03:13 → 2NO 08-01 13:52
PROVIDERS: ADMIT Student in an Organized Health Care Education/Training Program; ATTEND Internal Medicine
PROC: 5A09357 Assistance with Respiratory Ventilation, Less than 24 Consecutive Hours, Continuous Positive Airway Pressure (ICD-10-PCS; principal; 2023-08-02)
DX: I48.0 Paroxysmal atrial fibrillation (principal); I50.30 Unspecified diastolic (congestive) heart failure; J96.11 Chronic respiratory failure with hypoxia; Z68.42 Body mass index [BMI] 45.0-49.9, adult; E03.9 Hypothyroidism, unspecified; I25.10 Atherosclerotic heart disease of native coronary artery without angina pectoris; J44.9 Chronic obstructive pulmonary disease, unspecified; F41.9 Anxiety disorder, unspecified; F32.A Depression, unspecified; K21.9 Gastro-esophageal reflux disease without esophagitis; K52.9 Noninfective gastroenteritis and colitis, unspecified; F20.9 Schizophrenia, unspecified; E66.01 Morbid (severe) obesity due to excess calories; I11.0 Hypertensive heart disease with heart failure; M48.061 Spinal stenosis, lumbar region without neurogenic claudication; C88.0 Waldenstrom macroglobulinemia; Z98.890 Other specified postprocedural states; Z90.710 Acquired absence of both cervix and uterus; Z82.49 Family history of ischemic heart disease and other diseases of the circulatory system; Z87.891 Personal history of nicotine dependence; Z88.8 Allergy status to other drugs, medicaments and biological substances; Z79.82 Long term (current) use of aspirin; Z79.899 Other long term (current) drug therapy; Z99.81 Dependence on supplemental oxygen
CPT/HCPCS: 36415; 71045; 71275; 80048; 80053; 80162; 81001; 83605; 83735; 83880; 84439; 84443; 84484; 85025; 85379; 85610; 85730; 87040; 93005; 93306; 96365; 96366; 96368; 96372; 96375; 96376; J0282; J0696; J1650; J1940; J3475; J3490; J7070; J7620; J7626; Q0162; Q9967

== ENCOUNTER 2023-09-12 09:30 | Outpatient (CLI) | payer MEDICARE, OTHER | END 2023-09-12 09:31 | LOC: PET 09:30 | PROVIDERS: ATTEND Internal Medicine Hematology & Oncology | DX: R91.1 Solitary pulmonary nodule (principal); C34.11 Malignant neoplasm of upper lobe, right bronchus or lung | CPT/HCPCS: 78815; A9552 ==

== ENCOUNTER 2024-02-03 10:23 | Outpatient (CLI) | payer MEDICARE, OTHER ==
[2024-02-03] MEDS ORDERED: Iopamidol 370 76% 100 ML VIAL ONE (11:41)
== END 2024-02-03 10:24 | disposition home or self-care (01) ==
LOC: BICCT 10:23
PROVIDERS: ATTEND Radiology Radiation Oncology
DX: C34.11 Malignant neoplasm of upper lobe, right bronchus or lung (principal); J98.11 Atelectasis
CPT/HCPCS: 71260; 82565; Q9967

== ENCOUNTER 2024-05-25 05:15 | Inpatient (IN) | payer MEDICARE, OTHER ==
[2024-05-25] MEDS ORDERED: KETAMINE 100 MG/ML (5ML VIAL) ONE (05:25)
[2024-05-25] MEDS ORDERED: Rocuronium Bromide 10 MG/ML (10ML VIAL) ONE ×2 (05:25→05:32)
[2024-05-25] MEDS ORDERED: fentaNYL 50 mcg/mL 1 mL Vial ONE (05:32)
[2024-05-25] MEDS ORDERED: Albuterol 2.5 MG (0.5 mL) NEB ONE (05:43)
[2024-05-25] MEDS ORDERED: Fentanyl CADD 100 ML IV SCH (05:45)
[2024-05-25 05:50] LABS: #Basophils 0.06 10x3/uL (0.0-0.2); %Basophils 0.3 % (0.0-1.0); %Eosinophils 0.9 % (0.0-10.0); %Monocytes 5.8 % (0.0-10.0); %Neutrophils 74.6 % (42.0-75.0); Hematocrit 40.4 % (36.0-47.0); Hemoglobin 12.1 g/dL (12.0-16.0); Mean Corpuscular Hemoglobin 30.1 pg (27.0-31.0); Mean Corpuscular Volume 100.5 fL (78.0-98.0); Mean Platelet Volume 9.9 fL (7.4-10.4); Platelet Count 396 10x3/uL (130-400); RBC Distribution Width 14.6 % (11.5-14.5); Red Blood Cell (RBC) Count 4.02 mill/uL (4.20-5.40)
[2024-05-25] MEDS ORDERED: Sodium Chloride 0.9% 100 ML ONE (06:06)
[2024-05-25] MEDS ORDERED: cefTRIAXone (ROCEPHIN) 2 GM VIAL ONE (06:06)
[2024-05-25] MEDS ORDERED: Magnesium 2 GM/50 ML BAG (IN WATER) ONE (06:06)
[2024-05-25] MEDS ORDERED: Propofol 1,000 MG/100 ML VIAL IV ONE (06:06)
[2024-05-25 06:10] LABS: INR-International Normal Ratio 1.2; Prothrombin Time 15.6 sec (12.0-14.7)
[2024-05-25 06:11] LABS: PTT 30.9 sec (22.9-36.1)
[2024-05-25 06:13] LABS: D-Dimer Test 0.63 mcg/mL (0.27-0.43)
[2024-05-25 06:26] LABS: Actual Bicarbonate (HCO3a) 32.8 mEq/L (22-28); Analyzer IN Cardio ER; Base Excess (BEa) 7.6 mEq/L (-2.0 to +3.0); CO2 Tension 49.1 mmHg (35.0-45.0); Calcium, Ionized (arterial) 1.11 mmol/L (1.12-1.30); Carboxyhemoglobin (COHb) 0.9 gm% (0.0-3.0); Hematocrit-ABG 32 % (36.0-47.0); Potassium - ABG Lab 3.46 mmol/L (3.70-5.30); pH, Arterial 7.443 (7.35-7.45)
[2024-05-25 06:26] LABS: Bacteria/HPF None Seen HPF (None Seen); Bilirubin Negative (Negative); Blood, Urine Negative (Negative); CAUTI Indications for Culture Alt mental st,lethar; Calcium Oxalate Crystals Rare HPF (None Seen); Clarity Clear (Clear); Glucose, Urine (Dipstick) Normal (Negative); Ketone, Urine Negative (Negative); Leukocyte Negative Leu/uL (Negative); Nitrite Negative (Negative); Protein, Urine (Dipstick) 30 mg/dL (Neg-Trace); Specific Gravity, Urine 1.017 (1.002-1.036); Squamous Epithelial 0-3 HPF (0-3); Urobilinogen Normal mg/dL (Less than 2); WBC/HPF 0-3 HPF (0-3)
[2024-05-25 06:27] LABS: Digoxin Less than 0.19 ng/mL (0.8-2.0)
[2024-05-25 06:29] LABS: ALT (SGPT) 42 U/L (8-55); AST (SGOT) 45 U/L (5-34); Albumin 3.1 g/dL (3.4-4.8); Alkaline Phosphatase 228 U/L (40-110); Anion Gap 16 mmol/L (10-20); BUN (Urea Nitrogen) 21 mg/dL (9.8-20.1); Bilirubin, Total 0.4 mg/dL (0.2-1.2); Calc. Creatinine Clearance 0 mL/min (70-130); Calcium 8.8 mg/dL (7.8-10.44); Carbon Dioxide 38 mmol/L (23-31); Chloride 94 mmol/L (98-107); Estimated GFR 74; Globulin 3.3 g/dL (2.4-3.5); Glucose 119 mg/dL (80-115); Magnesium 2.1 mg/dL (1.6-2.6); Potassium 3.8 mmol/L (3.5-5.1); Protein, Total 6.4 g/dL (5.8-8.1); Sodium 144 mmol/L (136-145)
[2024-05-25 06:29] LABS: Urine Culture Reflex No No
[2024-05-25 06:32] LABS: ALV-art Gradient 207.125 mmHg (0-20)
[2024-05-25 06:32] LABS: Troponin I 0.017 ng/mL (< 0.028)
[2024-05-25] MEDS ORDERED: Oxymetazoline HCl 0.05% (30 ML BOT) ONE (06:54)
[2024-05-25] MEDS ORDERED: Ondansetron PF 4 MG/2 ML Vial IVP PRN (08:31)
[2024-05-25] MEDS ORDERED: Acetaminophen 650 MG Suppository PR PRN (08:31)
[2024-05-25] MEDS ORDERED: Insulin Lispro 100 UNIT/ML 10 ML VIAL SC PRN (08:34)
[2024-05-25] MEDS: Vancomycin (BATCH) 2 GM in Premix 1 BAG IVPB SCH (08:40)
[2024-05-25] MEDS ORDERED: Ventilator Sedation Protocol 1 EACH FS SCH (08:45)
[2024-05-25] MEDS ORDERED: Dextrose 5% in Water 1,000 ML IV PRN (08:56)
[2024-05-25] MEDS ORDERED: Glucagon 1 MG/ML KIT IM PRN (08:56)
[2024-05-25] MEDS ORDERED: Dextrose 50% Abboject 50 ML SYRINGE SLOW IVP PRN (08:56)
[2024-05-25] MEDS ORDERED: Propofol BOLUS 1,000 MG/100 ML VIAL IV PRN (09:00)
[2024-05-25] MEDS ORDERED: Lorazepam 2 MG/ML VIAL SLOW IVP PRN (09:00)
[2024-05-25] MEDS ORDERED: Morphine 2 MG/ML VIAL SLOW IVP PRN (09:00)
[2024-05-25] MEDS ORDERED: Famotidine/PF 20 mg/2ml Vial SLOW IVP SCH (09:00)
[2024-05-25] MEDS ORDERED: Fentanyl BOLUS 250 ML IVPB PRN (09:00)
[2024-05-25] MEDS ORDERED: DISCONTINUE PREVIOUS NARCOTIC PAIN MEDICATIONS AND BENZODIAZEPINES FS SCH (09:00)
[2024-05-25] MEDS: Ipratropium/Albuterol 3 ML NEB NEB SCH (10:23)
[2024-05-25] MEDS: Lisinopril 20 MG TAB PO SCH (11:34)
[2024-05-25] MEDS: Pantoprazole 40 MG VIAL IVP SCH (11:34)
[2024-05-25] MEDS ORDERED: methylPREDNISolone Sod Succ 40 MG VIAL IVP SCH ×2 (12:00)
[2024-05-25] MEDS ORDERED: Oxymetazoline HCl 0.05% (30 ML BOT) NS PRN (12:56)
[2024-05-25 13:24] LABS: Hematocrit 33.5 % (36.0-47.0); Hemoglobin 9.9 g/dL (12.0-16.0)
[2024-05-25] MEDS: Oxymetazoline HCl 0.05% (30 ML BOT) NS SCH (15:00)
[2024-05-25] MEDS: Azithromycin 500 MG in Sodium Chloride 0.9% 250 ML 250 ML IVPB SCH (15:24)
[2024-05-25] MEDS: Propofol 1,000 MG/100 ML VIAL IV PRN (17:45)
[2024-05-25] MEDS: Arformoterol 15 MCG/2 ML NEB NEB SCH (18:32)
[2024-05-25] MEDS: Budesonide 0.25 MG/2 ML NEB INH SCH (18:32)
[2024-05-25] MEDS: dilTIAZem 25 MG/5 ML VIAL SLOW IVP SCH (20:20)
[2024-05-25] MEDS ORDERED: dilTIAZem 125 MG in Sodium Chloride 0.9% 100 ML IVPB SCH (23:45)
[2024-05-26] MEDS: Diltiazem HCl/D5W 125 MG in Premix 1 BAG IVPB SCH (00:56)
[2024-05-26] MEDS: Fentanyl CADD 100 ML IV SCH (00:56)
[2024-05-26] MEDS: diphenhydrAMINE 50 MG/ML VIAL IVP SCH ×2 (02:05→21:20)
[2024-05-26 05:27] LABS: #Basophils 0.04 10x3/uL (0.0-0.2); %Basophils 0.3 % (0.0-1.0); %Eosinophils 0.4 % (0.0-10.0); %Lymphocytes 18.1 % (21.0-51.0); %Monocytes 8.4 % (0.0-10.0); %Neutrophils 72.5 % (42.0-75.0); Hematocrit 29.7 % (36.0-47.0); Hemoglobin 9.6 g/dL (12.0-16.0); Mean Corpuscular HGB CONC 32.3 g/dL (32.0-36.0); Mean Corpuscular Hemoglobin 30.4 pg (27.0-31.0); Mean Platelet Volume 10.2 fL (7.4-10.4); Platelet Count 325 10x3/uL (130-400); RBC Distribution Width 15.3 % (11.5-14.5); Red Blood Cell (RBC) Count 3.16 mill/uL (4.20-5.40)
[2024-05-26 05:37] LABS: Phosphorus 2.7 mg/dL (2.3-4.7)
[2024-05-26 05:41] LABS: Anion Gap 12 mmol/L (10-20); BUN (Urea Nitrogen) 19 mg/dL (9.8-20.1); Calc. Creatinine Clearance 134 mL/min (70-130); Calcium 8.3 mg/dL (7.8-10.44); Carbon Dioxide 37 mmol/L (23-31); Chloride 99 mmol/L (98-107); Estimated GFR 83; Glucose 114 mg/dL (80-115); Magnesium 2.2 mg/dL (1.6-2.6); Potassium 3.2 mmol/L (3.5-5.1); Sodium 145 mmol/L (136-145)
[2024-05-26] MEDS ORDERED: cefTRIAXone\\ROCEPHIN 2 GM in Sodium Chloride 0.9% 100 ML IVPB SCH (06:30)
[2024-05-26] MEDS: cefTRIAXone\\ROCEPHIN 1 GM in Sodium Chloride 0.9% 100 ML IVPB SCH (07:05)
[2024-05-26 07:25] VITALS: BMI 52.2
[2024-05-26 08:00] LABS: Actual Bicarbonate (HCO3a) 39.5 mEq/L (22-28); CO2 Tension 49.2 mmHg (35.0-45.0); Calcium, Ionized (arterial) 1.09 mmol/L (1.12-1.30); Carboxyhemoglobin (COHb) 1.4 gm% (0.0-3.0); Hematocrit-ABG 28 % (36.0-47.0); Hemoglobin (Hb) 9.5 g/dL (12.0-16.0); Potassium - ABG Lab 3.21 mmol/L (3.70-5.30); pH, Arterial 7.522 (7.35-7.45)
[2024-05-26 08:09] LABS: Puncture Site Left Radial artery
[2024-05-26] MEDS: methylPREDNISolone Sod Succ 40 MG VIAL IVP SCH (08:53)
[2024-05-26] MEDS: Enoxaparin 40 MG (0.4 mL) SYRINGE SC SCH (08:54)
[2024-05-26] MEDS ORDERED: dilTIAZem CD 180 MG CAP PO SCH (09:00)
[2024-05-26] MEDS: Levothyroxine Sodium 112 MCG TAB PO SCH (10:27)
[2024-05-26] MEDS: Levothyroxine Sodium 25 MCG TAB PO SCH (10:27)
[2024-05-26] MEDS: Dexmedetomidine In 0.9 % NaCl 100 ML IV SCH (10:48)
[2024-05-27 03:09] LABS: #Basophils 0.05 10x3/uL (0.0-0.2); %Basophils 0.4 % (0.0-1.0); %Eosinophils 0.8 % (0.0-10.0); %Lymphocytes 15.4 % (21.0-51.0); %Monocytes 7.1 % (0.0-10.0); Hematocrit 31.3 % (36.0-47.0); Hemoglobin 9.5 g/dL (12.0-16.0); Mean Corpuscular HGB CONC 30.4 g/dL (32.0-36.0); Mean Corpuscular Volume 98.7 fL (78.0-98.0); Mean Platelet Volume 9.6 fL (7.4-10.4); Platelet Count 330 10x3/uL (130-400); RBC Distribution Width 15.3 % (11.5-14.5); Red Blood Cell (RBC) Count 3.17 mill/uL (4.20-5.40)
[2024-05-27 04:14] LABS: Anion Gap 11 mmol/L (10-20); BUN (Urea Nitrogen) 15 mg/dL (9.8-20.1); Calc. Creatinine Clearance 146 mL/min (70-130); Calcium 8.4 mg/dL (7.8-10.44); Carbon Dioxide 37 mmol/L (23-31); Chloride 99 mmol/L (98-107); Estimated GFR 91; Glucose 106 mg/dL (80-115); Potassium 3.9 mmol/L (3.5-5.1); Sodium 143 mmol/L (136-145)
[2024-05-27] MEDS: FLU (Fluad Triv) TS24-25 (65UP)/MF59C/PF 45 MCG/0.5 ML Syringe IM ONE (07:50)
[2024-05-27 09:04] LABS: Actual Bicarbonate (HCO3a) 39.3 mEq/L (22-28); Base Excess (BEa) 12.8 mEq/L (-2.0 to +3.0); Calcium, Ionized (arterial) 1.14 mmol/L (1.12-1.30); Carboxyhemoglobin (COHb) 1.1 gm% (0.0-3.0); Hematocrit-ABG 29 % (36.0-47.0); Hemoglobin (Hb) 9.9 g/dL (12.0-16.0); O2 Tension (PaO2), arterial 62.7 mmHg (> 70.0); Potassium - ABG Lab 3.75 mmol/L (3.70-5.30); pH, Arterial 7.414 (7.35-7.45)
[2024-05-27 09:05] LABS: ALV-art Gradient 250.825 mmHg (0-20); CO2 Tension 62.9 mmHg (35.0-45.0); Puncture Site Right Radial artery
[2024-05-27] MEDS: fentaNYL 75 mcg/hour Patch TD SCH (15:15)
[2024-05-27] MEDS: diphenhydrAMINE 50 MG/ML VIAL IVP SCH (20:25)
[2024-05-28] MEDS: Lorazepam 2 MG/ML VIAL SLOW IVP SCH (00:07)
[2024-05-28 06:47] LABS: Hematocrit 31.5 % (36.0-47.0); Hemoglobin 9.7 g/dL (12.0-16.0); Platelet Count 359 10x3/uL (130-400)
[2024-05-28] MEDS: Dronedarone HCl 400 MG TAB PO SCH (09:20)
[2024-05-28] MEDS: Digoxin 0.125 MG TAB PO SCH (09:20)
[2024-05-28] MEDS: Apixaban 2.5 MG TAB PO SCH (09:21)
[2024-05-28] MEDS: dilTIAZem 30 MG TAB PO SCH (18:34)
[2024-05-28] MEDS: Melatonin 3 MG TAB PO SCH (21:02)
[2024-05-28] MEDS: diphenhydrAMINE 50 MG/ML VIAL IVP SCH (21:02)
[2024-05-29] MEDS: hydrALAZINE 20 MG/ML VIAL SLOW IVP PRN (00:10)
[2024-05-29 06:53] LABS: Digoxin Less than 0.19 ng/mL (0.8-2.0)
[2024-05-29] MEDS: methylPREDNISolone Sod Succ 40 MG VIAL IVP SCH (09:04)
[2024-05-29 13:48] VITALS: BMI 52.0
[2024-05-29] MEDS: Apixaban 5 MG TAB PO SCH (20:36)
[2024-05-29] MEDS: dilTIAZem 30 MG TAB PO SCH (22:02)
[2024-05-30] MEDS: Acetaminophen 325 MG TAB PO PRN (02:47)
[2024-05-30] MEDS: cefTRIAXone (ROCEPHIN) 1 GM VIAL ONE ×2 (07:11→07:13)
[2024-05-30] MEDS: Labetalol HCl 100 MG/20 ML VIAL SLOW IVP PRN (11:31)
[2024-05-30] MEDS: Azithromycin 500 MG in Sodium Chloride 0.9% 250 ML 250 ML IVPB SCH (13:33)
[2024-05-30] MEDS: Lorazepam 1 MG TAB PO SCH (21:35)
[2024-05-31] MEDS: hydrALAZINE 20 MG/ML VIAL SLOW IVP PRN (06:01)
[2024-05-31] MEDS: predniSONE 20 MG TAB PO SCH (08:49)
[2024-05-31] MEDS: Lorazepam 1 MG TAB PO SCH (08:50)
[2024-05-31] MEDS: Ipratropium/Albuterol 3 ML NEB ONE (10:52)
[2024-05-31 17:47] LABS: #Basophils Less than 0.03 10x3/uL (0.0-0.2); #Eosinophils Less than 0.03 10x3/uL (0.0-0.7); %Basophils 0.1 % (0.0-1.0); %Eosinophils 0.1 % (0.0-10.0); %Lymphocytes 6.6 % (21.0-51.0); %Monocytes 1.4 % (0.0-10.0); %Neutrophils 90.4 % (42.0-75.0); Hematocrit 36.2 % (36.0-47.0); Hemoglobin 11.4 g/dL (12.0-16.0); Mean Corpuscular HGB CONC 31.5 g/dL (32.0-36.0); Mean Corpuscular Hemoglobin 30.1 pg (27.0-31.0); Mean Corpuscular Volume 95.5 fL (78.0-98.0); Mean Platelet Volume 9.6 fL (7.4-10.4); Platelet Count 449 10x3/uL (130-400); Red Blood Cell (RBC) Count 3.79 mill/uL (4.20-5.40)
[2024-05-31 18:06] LABS: Anion Gap 14 mmol/L (10-20); BUN (Urea Nitrogen) 8 mg/dL (9.8-20.1); Calc. Creatinine Clearance 102 mL/min (70-130); Calcium 8.9 mg/dL (7.8-10.44); Carbon Dioxide 29 mmol/L (23-31); Chloride 101 mmol/L (98-107); Estimated GFR 72; Glucose 119 mg/dL (80-115); Magnesium 2.2 mg/dL (1.6-2.6); Potassium 4.1 mmol/L (3.5-5.1); Sodium 140 mmol/L (136-145)
[2024-05-31] MEDS: Lidocaine 4% Patch TD SCH (20:37)
[2024-05-31] MEDS: Non-Formulary Item 1 EACH (Lidocaine [Lidocaine 5% Patch] 1 EACH Adh..Patch) TOP SCH (20:40)
[2024-06-01] MEDS: dilTIAZem CD 180 MG CAP PO SCH (08:17)
[2024-06-01] MEDS: Transdermal Patch Removal TOP SCH (08:20)
[2024-06-01] MEDS ORDERED: Lisinopril 20 MG TAB PO SCH (09:00)
[2024-06-01 16:48] VITALS: BP 137/82; TEMP 98.7
== END 2024-06-01 16:58 | disposition home or self-care (01) | DRG 208 ==
LOC: ERS 05:15 → CCU 08:39 → T4-B 05-30 13:33
PROVIDERS: ADMIT Internal Medicine; ATTEND Student in an Organized Health Care Education/Training Program
PROC: 5A1945Z Respiratory Ventilation, 24-96 Consecutive Hours (ICD-10-PCS; principal; 2024-05-25)
PROC: 0T9B70Z Drainage of Bladder with Drainage Device, Via Natural or Artificial Opening (ICD-10-PCS; 2024-05-25)
PROC: 0BH17EZ Insertion of Endotracheal Airway into Trachea, Via Natural or Artificial Opening (ICD-10-PCS; 2024-05-25)
PROC: 0DH67UZ Insertion of Feeding Device into Stomach, Via Natural or Artificial Opening (ICD-10-PCS; 2024-05-25)
PROC: 4A133R1 Monitoring of Arterial Saturation, Peripheral, Percutaneous Approach (ICD-10-PCS; 2024-05-25)
PROC: 3E03329 Introduction of Other Anti-infective into Peripheral Vein, Percutaneous Approach (ICD-10-PCS; 2024-05-25)
PROC: 5A09457 Assistance with Respiratory Ventilation, 24-96 Consecutive Hours, Continuous Positive Airway Pressure (ICD-10-PCS; 2024-05-27)
DX: J96.21 Acute and chronic respiratory failure with hypoxia (principal); A41.9 Sepsis, unspecified organism; J44.1 Chronic obstructive pulmonary disease with (acute) exacerbation; Z68.42 Body mass index [BMI] 45.0-49.9, adult; E66.2 Morbid (severe) obesity with alveolar hypoventilation; I48.20 Chronic atrial fibrillation, unspecified; J96.22 Acute and chronic respiratory failure with hypercapnia; Z79.899 Other long term (current) drug therapy; Z79.82 Long term (current) use of aspirin; Z79.01 Long term (current) use of anticoagulants; E03.9 Hypothyroidism, unspecified; K21.9 Gastro-esophageal reflux disease without esophagitis; E78.5 Hyperlipidemia, unspecified; I10 Essential (primary) hypertension; Z90.49 Acquired absence of other specified parts of digestive tract; Z98.890 Other specified postprocedural states; Z90.710 Acquired absence of both cervix and uterus; Z87.891 Personal history of nicotine dependence; R04.0 Epistaxis; C88.00 Waldenstrom macroglobulinemia not having achieved remission
CPT/HCPCS: 31500; 36415; 36416; 36600; 51702; 71045; 80048; 80053; 80162; 81001; 82805; 83605; 83735; 83880; 84100; 84443; 84484; 85014; 85018; 85025; 85049; 85379; 85610; 85730; 86850; 86900; 86901; 87040; 87086; 90653; 93005; 94002; 94003; 94640; 94644; 94660; 94760; 96365; 96366; 96367; 96368; J0360; J0456; J0696; J1200; J1650; J2060; J2470; J2704; J2919; J3010; J3370; J3475; J7050; J7512; J7611; J7620; J7626

== ENCOUNTER 2024-06-30 10:54 | Outpatient (CLI) | payer MEDICARE, OTHER | END 2024-06-30 10:55 | disposition home or self-care (01) | LOC: RAD 10:54 | PROVIDERS: ATTEND Internal Medicine Critical Care Medicine | DX: R06.00 Dyspnea, unspecified (principal); C34.11 Malignant neoplasm of upper lobe, right bronchus or lung | CPT/HCPCS: 71046 ==

== ENCOUNTER 2024-07-16 23:06 | Inpatient (IN) | payer MEDICARE, OTHER ==
[~2024-07-16 23:06] MED LIST: Iopamidol-370 76% 500 ML MDV (1 ML CHARGE) ONE
[2024-07-16 23:24] LABS: #Basophils 0.08 10x3/uL (0.0-0.2); %Basophils 0.5 % (0.0-1.0); %Eosinophils 1.8 % (0.0-10.0); %Lymphocytes 18.6 % (21.0-51.0); %Monocytes 5.8 % (0.0-10.0); %Neutrophils 72.7 % (42.0-75.0); Hematocrit 37.4 % (36.0-47.0); Hemoglobin 10.9 g/dL (12.0-16.0); Mean Corpuscular HGB CONC 29.1 g/dL (32.0-36.0); Mean Corpuscular Hemoglobin 30.1 pg (27.0-31.0); Mean Corpuscular Volume 103.3 fL (78.0-98.0); Mean Platelet Volume 9.1 fL (7.4-10.4); Platelet Count 422 10x3/uL (130-400); RBC Distribution Width 16.2 % (11.5-14.5); Red Blood Cell (RBC) Count 3.62 mill/uL (4.20-5.40)
[2024-07-16] MEDS ORDERED: Ipratropium Bromide 2.5 ml Neb ONE (23:25)
[2024-07-16] MEDS ORDERED: Albuterol 2.5 MG (0.5 mL) NEB ONE (23:25)
[2024-07-16 23:28] LABS: Actual Bicarbonate (HCO3v) 35.8 mEq/L (22-28); Analyzer IN Cardio ER; Base Excess 5.5 mEq/L (-2.0 to +3.0); Calcium, Ionized (venous) 1.14 mmol/L (1.16-1.32); Chloride (VBG) 95 mmol/L (98-106); Hematocrit-VBG 34 % (36.0-47.0); Hemoglobin (Hb) 11.4 g/dL (11.7-16.1); Potassium (VBG) 3.65 mmol/L (3.70-5.30); Sodium 142 mmol/L (133-146); pH (venous) 7.213 (7.32-7.43)
[2024-07-16] MEDS ORDERED: Magnesium 2 GM/50 ML BAG (IN WATER) ONE (23:31)
[2024-07-16] MEDS ORDERED: Azithromycin 500 MG VIAL ONE (23:32)
[2024-07-16] MEDS ORDERED: Sodium Chloride 0.9% 100 ML ONE (23:32)
[2024-07-16] MEDS ORDERED: cefTRIAXone (ROCEPHIN) 2 GM VIAL ONE (23:32)
[2024-07-16 23:43] LABS: ALT (SGPT) 13 U/L (8-55); AST (SGOT) 23 U/L (5-34); Albumin 2.9 g/dL (3.4-4.8); Alkaline Phosphatase 126 U/L (40-110); Anion Gap 14 mmol/L (10-20); BUN (Urea Nitrogen) 17 mg/dL (9.8-20.1); Bilirubin, Total 0.3 mg/dL (0.2-1.2); Calc. Creatinine Clearance 0 mL/min (70-130); Calcium 8.7 mg/dL (7.8-10.44); Carbon Dioxide 36 mmol/L (23-31); Chloride 96 mmol/L (98-107); Estimated GFR 60; Globulin 3.8 g/dL (2.4-3.5); Glucose 112 mg/dL (80-115); Potassium 3.7 mmol/L (3.5-5.1); Protein, Total 6.7 g/dL (5.8-8.1); Sodium 142 mmol/L (136-145)
[2024-07-16 23:44] LABS: Magnesium 2.2 mg/dL (1.6-2.6)
[2024-07-16 23:45] LABS: INR-International Normal Ratio 1.3; PTT 30.6 sec (22.9-36.1); Prothrombin Time 15.8 sec (12.0-14.7)
[2024-07-16 23:46] LABS: Actual Bicarbonate (HCO3a) 38.8 mEq/L (22-28); Analyzer IN Cardio ER; Base Excess (BEa) 8.9 mEq/L (-2.0 to +3.0); Calcium, Ionized (arterial) 1.19 mmol/L (1.12-1.30); Carboxyhemoglobin (COHb) 1.4 gm% (0.0-3.0); Hematocrit-ABG 32 % (36.0-47.0); O2 Tension (PaO2), arterial 95.2 mmHg (> 70.0); pH, Arterial 7.251 (7.35-7.45)
[2024-07-16 23:48] LABS: CO2 Tension 90.3 mmHg (35.0-45.0)
[2024-07-16 23:48] LABS: Troponin I 0.015 ng/mL (< 0.028)
[2024-07-16 23:49] LABS: ALV-art Gradient -8.435 mmHg (0-20); Puncture Site Left Brachial artery
[2024-07-17 01:02] LABS: Analyzer IN Cardio ER; Calcium, Ionized (arterial) 1.18 mmol/L (1.12-1.30); Carboxyhemoglobin (COHb) 2.1 gm% (0.0-3.0); Hematocrit-ABG 31 % (36.0-47.0); Hemoglobin (Hb) 10.7 g/dL (12.0-16.0); O2 Tension (PaO2), arterial 65.8 mmHg (> 70.0); Potassium - ABG Lab 3.82 mmol/L (3.70-5.30); pH, Arterial 7.219 (7.35-7.45)
[2024-07-17 01:05] LABS: CO2 Tension 90.1 mmHg (35.0-45.0)
[2024-07-17 01:06] LABS: ALV-art Gradient 142.425 mmHg (0-20); Puncture Site Right Radial artery
[2024-07-17] MEDS ORDERED: Albuterol 2.5 MG (0.5 mL) NEB ONE (01:33)
[2024-07-17] MEDS ORDERED: Ipratropium Bromide 2.5 ml Neb ONE ×2 (01:33→01:34)
[2024-07-17 03:02] LABS: Actual Bicarbonate (HCO3a) 39.2 mEq/L (22-28); Analyzer IN Cardio ER; Base Excess (BEa) 8.7 mEq/L (-2.0 to +3.0); Calcium, Ionized (arterial) 1.19 mmol/L (1.12-1.30); Carboxyhemoglobin (COHb) 1.5 gm% (0.0-3.0); Hematocrit-ABG 33 % (36.0-47.0); Hemoglobin (Hb) 11.2 g/dL (12.0-16.0); O2 Tension (PaO2), arterial 67.7 mmHg (> 70.0); Potassium - ABG Lab 3.81 mmol/L (3.70-5.30); pH, Arterial 7.229 (7.35-7.45)
[2024-07-17] MEDS ORDERED: Rocuronium Bromide 10 MG/ML (10ML VIAL) ONE (03:10)
[2024-07-17] MEDS ORDERED: KETAMINE 100 MG/ML (5ML VIAL) ONE (03:10)
[2024-07-17 03:12] LABS: Puncture Site Right Radial artery
[2024-07-17] MEDS ORDERED: Acetaminophen 650 MG Suppository PR PRN (03:38)
[2024-07-17] MEDS ORDERED: Electrolyte Replacement Protocol 1 EACH IVPB SCH (03:38)
[2024-07-17] MEDS ORDERED: Ventilator Sedation Protocol 1 EACH FS SCH (03:45)
[2024-07-17] MEDS ORDERED: Propofol BOLUS 1,000 MG/100 ML VIAL IV PRN (03:45)
[2024-07-17] MEDS ORDERED: Fentanyl BOLUS 250 ML IVPB PRN (03:45)
[2024-07-17] MEDS ORDERED: Fentanyl CADD 100 ML IV SCH (03:45)
[2024-07-17] MEDS ORDERED: fentaNYL 50 mcg/mL 1 mL Vial ONE (04:28)
[2024-07-17] MEDS ORDERED: Calcium Carbonate 500 MG ChewTAB PO PRN (04:32)
[2024-07-17] MEDS ORDERED: Ondansetron PF 4 MG/2 ML Vial IVP PRN (04:32)
[2024-07-17] MEDS ORDERED: Propofol 1,000 MG/100 ML VIAL IV ONE (04:33)
[2024-07-17 04:55] LABS: Bacteria/HPF None Seen HPF (None Seen); CAUTI Indications for Culture Urological Procedure; RBC/HPF 0-3 HPF (0-3); Squamous Epithelial 0-3 HPF (0-3)
[2024-07-17 05:00] LABS: Urine Culture Reflex Yes Yes
[2024-07-17] MEDS: Doxycycline 100 MG in Sodium Chloride 0.9% 100 ML IVPB SCH (05:21)
[2024-07-17] MEDS: Acetaminophen 325 MG TAB PO SCH (05:23)
[2024-07-17] MEDS: Furosemide 40 MG (4 mL) VIAL SLOW IVP SCH (05:23)
[2024-07-17 05:24] LABS: Bilirubin Negative (Negative); Blood, Urine Negative (Negative); Glucose, Urine (Dipstick) Negative (Negative); Ketone, Urine Negative (Negative); Leukocyte Negative (Negative); Nitrite Negative (Negative); Protein, Urine (Dipstick) Negative (Neg-Trace); Urobilinogen 0.2 mg/dL (Less than 2)
[2024-07-17] MEDS: methylPREDNISolone Sod Succ 40 MG VIAL IVP SCH (05:24)
[2024-07-17] MEDS: Levothyroxine Sodium 25 MCG TAB PO SCH (05:24)
[2024-07-17 05:26] LABS: Clarity Clear (Clear)
[2024-07-17] MEDS: Lorazepam 2 MG/ML VIAL SLOW IVP PRN (06:20)
[2024-07-17] MEDS: Propofol 1,000 MG/100 ML VIAL IV PRN (07:16)
[2024-07-17] MEDS: Budesonide 0.25 MG/2 ML NEB INH SCH (07:25)
[2024-07-17] MEDS: Ipratropium/Albuterol 3 ML NEB NEB SCH (07:25)
[2024-07-17] MEDS ORDERED: Electrolyte Replacement Protocol FS PRN (07:45)
[2024-07-17] MEDS: Famotidine/PF 20 mg/2ml Vial SLOW IVP SCH (08:46)
[2024-07-17] MEDS: Dronedarone HCl 400 MG TAB PO SCH (08:48)
[2024-07-17] MEDS: Naloxegol 12.5 MG TAB PO SCH (08:48)
[2024-07-17] MEDS: DULoxetine 60 MG CAP PO SCH (08:49)
[2024-07-17] MEDS: Lisinopril 20 MG TAB PO SCH (08:49)
[2024-07-17] MEDS: Apixaban 5 MG TAB PO SCH (08:49)
[2024-07-17] MEDS: Digoxin 0.125 MG TAB PO SCH (08:49)
[2024-07-17] MEDS: dilTIAZem CD 180 MG CAP PO SCH (12:16)
[2024-07-17] MEDS: fentaNYL 75 mcg/hour Patch TD SCH (12:33)
[2024-07-17] MEDS: Morphine 2 MG/ML VIAL SLOW IVP PRN (21:30)
[2024-07-18] MEDS: fentaNYL 75 mcg/hour Patch TD SCH (00:52)
[2024-07-18 03:32] LABS: #Basophils Less than 0.03 10x3/uL (0.0-0.2); #Eosinophils Less than 0.03 10x3/uL (0.0-0.7); %Basophils 0.1 % (0.0-1.0); %Lymphocytes 7.9 % (21.0-51.0); %Monocytes 3.2 % (0.0-10.0); %Neutrophils 88.4 % (42.0-75.0); Hematocrit 31.3 % (36.0-47.0); Hemoglobin 9.9 g/dL (12.0-16.0); Mean Corpuscular HGB CONC 31.6 g/dL (32.0-36.0); Mean Corpuscular Volume 94.8 fL (78.0-98.0); Mean Platelet Volume 9.3 fL (7.4-10.4); Platelet Count 395 10x3/uL (130-400); RBC Distribution Width 17.2 % (11.5-14.5)
[2024-07-18 03:55] LABS: Anion Gap 14 mmol/L (10-20); BUN (Urea Nitrogen) 17 mg/dL (9.8-20.1); Calc. Creatinine Clearance 114 mL/min (70-130); Calcium 8.1 mg/dL (7.8-10.44); Carbon Dioxide 34 mmol/L (23-31); Chloride 95 mmol/L (98-107); Estimated GFR 68; Glucose 126 mg/dL (80-115); Magnesium 2.1 mg/dL (1.6-2.6); Potassium 3.3 mmol/L (3.5-5.1); Sodium 140 mmol/L (136-145)
[2024-07-18] MEDS: Potassium Chloride 20 MEQ in Premix 1 BAG IVPB SCH (07:51)
[2024-07-18 08:23] LABS: Actual Bicarbonate (HCO3a) 36.9 mEq/L (22-28); Base Excess (BEa) 13.7 mEq/L (-2.0 to +3.0); CO2 Tension 39.1 mmHg (35.0-45.0); Carboxyhemoglobin (COHb) 1.3 gm% (0.0-3.0); Hematocrit-ABG 32 % (36.0-47.0); Hemoglobin (Hb) 10.9 g/dL (12.0-16.0); O2 Tension (PaO2), arterial 61.2 mmHg (> 70.0)
[2024-07-18 08:24] LABS: Calcium, Ionized (arterial) 1.01 mmol/L (1.12-1.30); Potassium - ABG Lab 3.62 mmol/L (3.70-5.30); Puncture Site Right Radial artery
[2024-07-18 08:25] LABS: ALV-art Gradient 175.125 mmHg (0-20)
[2024-07-19] MEDS ORDERED: Docusate Sodium 100 MG/10 ML UDCUP PO PRN (08:34)
[2024-07-19] MEDS ORDERED: Polyethylene Glycol 3350 17 GM Packet PO PRN (08:34)
[2024-07-19 08:37] LABS: Hematocrit 35.9 % (36.0-47.0); Hemoglobin 11.2 g/dL (12.0-16.0); Mean Corpuscular HGB CONC 31.2 g/dL (32.0-36.0); Mean Corpuscular Hemoglobin 30.2 pg (27.0-31.0); Mean Corpuscular Volume 96.8 fL (78.0-98.0); Mean Platelet Volume 9.4 fL (7.4-10.4); Platelet Count 401 10x3/uL (130-400); RBC Distribution Width 17.7 % (11.5-14.5); Red Blood Cell (RBC) Count 3.71 mill/uL (4.20-5.40)
[2024-07-19 09:05] LABS: Anion Gap 15 mmol/L (10-20); BUN (Urea Nitrogen) 19 mg/dL (9.8-20.1); Calc. Creatinine Clearance 129 mL/min (70-130); Calcium 8.2 mg/dL (7.8-10.44); Carbon Dioxide 30 mmol/L (23-31); Chloride 95 mmol/L (98-107); Estimated GFR 83; Glucose 104 mg/dL (80-115); Potassium 4.3 mmol/L (3.5-5.1); Sodium 136 mmol/L (136-145)
[2024-07-19] MEDS: Acetaminophen 650 MG Suppository PR PRN (16:08)
[2024-07-19] MEDS: Enoxaparin 30 MG (0.3 mL) SYRINGE SC SCH (19:34)
[2024-07-20] MEDS: Acetaminophen 650 MG/20.3 ML UDCUP PO PRN (02:00)
[2024-07-20 03:52] LABS: Hematocrit 34.7 % (36.0-47.0); Hemoglobin 10.8 g/dL (12.0-16.0); Mean Corpuscular HGB CONC 31.1 g/dL (32.0-36.0); Mean Corpuscular Hemoglobin 29.8 pg (27.0-31.0); Mean Corpuscular Volume 95.6 fL (78.0-98.0); Mean Platelet Volume 9.8 fL (7.4-10.4); Platelet Count 393 10x3/uL (130-400); RBC Distribution Width 17.4 % (11.5-14.5); Red Blood Cell (RBC) Count 3.63 mill/uL (4.20-5.40)
[2024-07-20 04:17] LABS: Anion Gap 14 mmol/L (10-20); BUN (Urea Nitrogen) 19 mg/dL (9.8-20.1); Calc. Creatinine Clearance 117 mL/min (70-130); Calcium 8.4 mg/dL (7.8-10.44); Carbon Dioxide 33 mmol/L (23-31); Chloride 101 mmol/L (98-107); Estimated GFR 74; Glucose 113 mg/dL (80-115); Sodium 144 mmol/L (136-145)
[2024-07-20] MEDS: Levothyroxine Sodium 25 MCG TAB PO SCH ×2 (04:50→09:40)
[2024-07-20] MEDS: Levothyroxine Sodium 112 MCG TAB PO SCH ×2 (04:50→09:41)
[2024-07-20] MEDS ORDERED: AFRIN NASAL MIST 15 ML BOT NS PRN (08:59)
[2024-07-20] MEDS: Pregabalin 50 MG CAP PO SCH (15:05)
[2024-07-20] MEDS: Oxymetazoline HCl 0.05% (30 ML BOT) NS PRN (17:22)
[2024-07-20] MEDS: methylPREDNISolone Sod Succ 40 MG VIAL IVP SCH (19:59)
[2024-07-20] MEDS ORDERED: fentaNYL 75 mcg/hour Patch TD SCH (23:15)
[2024-07-21] MEDS ORDERED: DILTIAZEM HCL 240 MG PO SCH (09:00)
[2024-07-21] MEDS: fentaNYL 75 mcg/hour Patch TD SCH (11:29)
[2024-07-21 11:49] VITALS: BMI 50.8
[2024-07-22 05:48] LABS: Hematocrit 36.2 % (36.0-47.0); Hemoglobin 10.7 g/dL (12.0-16.0); Mean Corpuscular HGB CONC 29.6 g/dL (32.0-36.0); Mean Corpuscular Hemoglobin 29.2 pg (27.0-31.0); Mean Corpuscular Volume 98.6 fL (78.0-98.0); Mean Platelet Volume 9.1 fL (7.4-10.4); Platelet Count 414 10x3/uL (130-400); Red Blood Cell (RBC) Count 3.67 mill/uL (4.20-5.40)
[2024-07-22 06:45] LABS: Anion Gap 16 mmol/L (10-20); BUN (Urea Nitrogen) 14 mg/dL (9.8-20.1); Calc. Creatinine Clearance 119 mL/min (70-130); Calcium 8.3 mg/dL (7.8-10.44); Carbon Dioxide 29 mmol/L (23-31); Chloride 101 mmol/L (98-107); Estimated GFR 79; Glucose 127 mg/dL (80-115); Potassium 4.1 mmol/L (3.5-5.1); Sodium 142 mmol/L (136-145)
[2024-07-22] MEDS: predniSONE 20 MG TAB PO SCH (09:35)
[2024-07-22] MEDS: Apixaban 5 MG TAB PO SCH (09:35)
[2024-07-22] MEDS: Doxycycline 100 MG CAP PO SCH (20:02)
[2024-07-24 04:59] VITALS: BMI 46.6
[2024-07-24 13:21] VITALS: BP 125/62; TEMP 98.9
== END 2024-07-24 13:42 | disposition home or self-care (01) | DRG 208 ==
LOC: ERS 23:06 → ERHOLD 07-17 04:05 → CCU 07-17 04:42 → T4-A 07-20 10:59
PROVIDERS: ADMIT Student in an Organized Health Care Education/Training Program; ATTEND Internal Medicine
PROC: 4A133R1 Monitoring of Arterial Saturation, Peripheral, Percutaneous Approach (ICD-10-PCS; 2024-07-16)
PROC: 0BH17EZ Insertion of Endotracheal Airway into Trachea, Via Natural or Artificial Opening (ICD-10-PCS; principal; 2024-07-17)
PROC: 5A1945Z Respiratory Ventilation, 24-96 Consecutive Hours (ICD-10-PCS; 2024-07-17)
DX: J96.01 Acute respiratory failure with hypoxia (principal); J44.1 Chronic obstructive pulmonary disease with (acute) exacerbation; E66.2 Morbid (severe) obesity with alveolar hypoventilation; Z68.42 Body mass index [BMI] 45.0-49.9, adult; E87.20 Acidosis, unspecified; I50.32 Chronic diastolic (congestive) heart failure; D64.9 Anemia, unspecified; E87.6 Hypokalemia; J96.02 Acute respiratory failure with hypercapnia; E78.5 Hyperlipidemia, unspecified; K21.9 Gastro-esophageal reflux disease without esophagitis; E03.9 Hypothyroidism, unspecified; I11.0 Hypertensive heart disease with heart failure; C88.00 Waldenstrom macroglobulinemia not having achieved remission; F32.A Depression, unspecified; F41.9 Anxiety disorder, unspecified; F60.0 Paranoid personality disorder; I48.0 Paroxysmal atrial fibrillation; R04.0 Epistaxis; Z99.89 Dependence on other enabling machines and devices; Z87.891 Personal history of nicotine dependence; Z90.710 Acquired absence of both cervix and uterus; Z90.49 Acquired absence of other specified parts of digestive tract; Z98.84 Bariatric surgery status; Z88.8 Allergy status to other drugs, medicaments and biological substances; Z99.81 Dependence on supplemental oxygen
CPT/HCPCS: 31500; 36415; 36416; 36600; 51702; 71045; 71275; 74018; 80048; 80053; 81001; 82805; 83605; 83735; 83880; 84484; 85025; 85027; 85610; 85730; 87040; 87086; 87428; 93005; 93798; 94002; 94003; 94640; 96365; 96366; 96374; 96375; 99292; J0456; J0696; J1650; J1940; J2060; J2272; J2704; J2919; J3010; J3475; J3480; J3490; J7512; J7611; J7620; J7626; J7644; Q9967

== ENCOUNTER 2024-08-03 13:15 | Inpatient (IN) | payer MEDICARE, OTHER ==
[2024-08-03 14:17] LABS: Hematocrit 36.4 % (36.0-47.0); Mean Corpuscular HGB CONC 30.2 g/dL (32.0-36.0); Mean Corpuscular Hemoglobin 29.7 pg (27.0-31.0); Mean Corpuscular Volume 98.4 fL (78.0-98.0); Mean Platelet Volume 9.4 fL (7.4-10.4); Platelet Count 355 10x3/uL (130-400); RBC Distribution Width 15.8 % (11.5-14.5)
[2024-08-03 14:20] LABS: Actual Bicarbonate (HCO3v) 31.7 mEq/L (22-28); Base Excess 2.2 mEq/L (-2.0 to +3.0); Calcium, Ionized (venous) 1.13 mmol/L (1.16-1.32); Chloride (VBG) 97 mmol/L (98-106); Hematocrit-VBG 38 % (36.0-47.0); Hemoglobin (Hb) 12.9 g/dL (11.7-16.1); Potassium (VBG) 4.18 mmol/L (3.70-5.30); Sodium 140 mmol/L (133-146); pH (venous) 7.236 (7.32-7.43)
[2024-08-03 14:32] LABS: Troponin I 0.024 ng/mL (< 0.028)
[2024-08-03 14:34] LABS: ALT (SGPT) 15 U/L (8-55); AST (SGOT) 37 U/L (5-34); Albumin 2.9 g/dL (3.4-4.8); Alkaline Phosphatase 91 U/L (40-110); Anion Gap 18 mmol/L (10-20); BUN (Urea Nitrogen) 32 mg/dL (9.8-20.1); Bilirubin, Total 0.4 mg/dL (0.2-1.2); Calc. Creatinine Clearance 0 mL/min (70-130); Calcium 8.6 mg/dL (7.8-10.44); Carbon Dioxide 26 mmol/L (23-31); Chloride 100 mmol/L (98-107); Estimated GFR 58; Globulin 3.8 g/dL (2.4-3.5); Glucose 122 mg/dL (80-115); Potassium 5.1 mmol/L (3.5-5.1); Protein, Total 6.7 g/dL (5.8-8.1); Sodium 139 mmol/L (136-145)
[2024-08-03] MEDS ORDERED: Magnesium 2 GM/50 ML BAG (IN WATER) ONE (14:34)
[2024-08-03] MEDS ORDERED: Cefepime 1 GM VIAL ONE (14:41)
[2024-08-03] MEDS ORDERED: Albuterol 2.5 MG (0.5 mL) NEB ONE (14:41)
[2024-08-03] MEDS ORDERED: Sodium Chloride 0.9% 100 ML ONE (14:41)
[2024-08-03 14:45] LABS: Band 3 % (5-11); Eosinophils 1 % (0-10); Lymphocytes 1 % (21-51); Monocytes 5 % (0-10); Neutrophil 90 % (42-75); Platelet Adequacy Comment Platelets Normal; Polychromasia SLIGHT = 2-3 cells HPF (0-2)
[2024-08-03] MEDS ORDERED: Bisacodyl 5 MG TAB PO PRN ×2 (16:21)
[2024-08-03 17:54] LABS: Lactic Acid 0.87 mmol/L (0.5-2.2)
[2024-08-03] MEDS: Vancomycin (BATCH) 2.5 GM in Premix 1 BAG IVPB SCH (18:17)
[2024-08-03 18:21] VITALS: BMI 48.2
[2024-08-03] MEDS: Azithromycin 500 MG in Sodium Chloride 0.9% 250 ML 250 ML IVPB SCH (20:04)
[2024-08-03] MEDS ORDERED: Non-Formulary Item 1 EACH (Cyanocobalamin (Vitamin B-12) [Vitamin B12] 2,500 MCG Tablet) IM SCH (20:15)
[2024-08-03] MEDS ORDERED: Betamethasone Val 0.1% OINT 15 GM TUBE TOP PRN (20:39)
[2024-08-03] MEDS: Budesonide 0.25 MG/2 ML NEB NEB SCH ×2 (20:41→20:42)
[2024-08-03] MEDS: Ipratropium/Albuterol 3 ML NEB NEB SCH (20:41)
[2024-08-03] MEDS: Ipratropium/Albuterol 3 ML NEB ONE (20:42)
[2024-08-03] MEDS: Budesonide 0.5 MG/2 ML NEB ONE (20:42)
[2024-08-03] MEDS: Apixaban 5 MG TAB PO SCH (22:33)
[2024-08-03] MEDS: busPIRone HCl 10 MG TAB PO SCH (22:33)
[2024-08-03] MEDS: Lorazepam 1 MG TAB PO SCH (22:33)
[2024-08-03] MEDS: Pregabalin 50 MG CAP PO SCH (22:33)
[2024-08-04] MEDS: Cefepime 2 GM in Sodium Chloride 0.9% 100 ML IVPB SCH (00:22)
[2024-08-04 04:22] LABS: #Basophils Less than 0.03 10x3/uL (0.0-0.2); #Eosinophils Less than 0.03 10x3/uL (0.0-0.7); %Basophils 0.1 % (0.0-1.0); %Lymphocytes 8.8 % (21.0-51.0); %Monocytes 1.2 % (0.0-10.0); %Neutrophils 89.3 % (42.0-75.0); Hematocrit 34.5 % (36.0-47.0); Hemoglobin 10.3 g/dL (12.0-16.0); Mean Corpuscular HGB CONC 29.9 g/dL (32.0-36.0); Mean Corpuscular Hemoglobin 29.6 pg (27.0-31.0); Mean Corpuscular Volume 99.1 fL (78.0-98.0); Mean Platelet Volume 9.6 fL (7.4-10.4); Platelet Count 312 10x3/uL (130-400); RBC Distribution Width 15.9 % (11.5-14.5); Red Blood Cell (RBC) Count 3.48 mill/uL (4.20-5.40)
[2024-08-04 04:38] LABS: Anion Gap 14 mmol/L (10-20); BUN (Urea Nitrogen) 27 mg/dL (9.8-20.1); Calc. Creatinine Clearance 100 mL/min (70-130); Calcium 8.6 mg/dL (7.8-10.44); Carbon Dioxide 30 mmol/L (23-31); Chloride 102 mmol/L (98-107); Estimated GFR 66; Glucose 127 mg/dL (80-115); Potassium 5.5 mmol/L (3.5-5.1); Sodium 140 mmol/L (136-145)
[2024-08-04] MEDS: Levothyroxine Sodium 25 MCG TAB PO SCH (06:02)
[2024-08-04] MEDS: Levothyroxine Sodium 112 MCG TAB PO SCH (06:02)
[2024-08-04] MEDS: predniSONE 20 MG TAB PO SCH (08:28)
[2024-08-04] MEDS: Lisinopril 20 MG TAB PO SCH (08:28)
[2024-08-04] MEDS: Pantoprazole 40 MG DR.TAB PO SCH (08:28)
[2024-08-04] MEDS: Digoxin 0.125 MG TAB PO SCH (08:28)
[2024-08-04] MEDS: DULoxetine 60 MG CAP PO SCH (08:29)
[2024-08-04] MEDS: Dronedarone HCl 400 MG TAB PO SCH (08:29)
[2024-08-04] MEDS: Naloxegol 12.5 MG TAB PO SCH (08:29)
[2024-08-04] MEDS: Lidocaine 4% Patch TD SCH (08:29)
[2024-08-04] MEDS ORDERED: Non-Formulary Item 1 EACH (Levothyroxine Sodium [Levothyroxine Sodium] 137 MCG Tablet) PO SCH (09:00)
[2024-08-04] MEDS ORDERED: cefTRIAXone\\ROCEPHIN 2 GM in Sodium Chloride 0.9% 100 ML IVPB SCH (09:00)
[2024-08-04] MEDS: Sodium Polystyrene Sulfonate 15 GM (60 mL) BOT PO SCH (19:05)
[2024-08-04] MEDS: fentaNYL 75 mcg/hour Patch TD SCH ×2 (21:17→21:24)
[2024-08-04] MEDS: Transdermal Patch Removal TOP SCH (21:23)
[2024-08-05 03:27] LABS: Actual Bicarbonate (HCO3v) 33.7 mEq/L (22-28); Base Excess 5.7 mEq/L (-2.0 to +3.0); Calcium, Ionized (venous) 1.13 mmol/L (1.16-1.32); Chloride (VBG) 100 mmol/L (98-106); Hematocrit-VBG 32 % (36.0-47.0); Hemoglobin (Hb) 10.8 g/dL (11.7-16.1); Potassium (VBG) 3.95 mmol/L (3.70-5.30); Sodium 142 mmol/L (133-146); pH (venous) 7.304 (7.32-7.43)
[2024-08-05 03:33] LABS: #Basophils Less than 0.03 10x3/uL (0.0-0.2); %Basophils 0.1 % (0.0-1.0); %Eosinophils 0.4 % (0.0-10.0); %Lymphocytes 10.2 % (21.0-51.0); %Monocytes 5.5 % (0.0-10.0); %Neutrophils 83.4 % (42.0-75.0); Hematocrit 33.4 % (36.0-47.0); Mean Corpuscular HGB CONC 29.9 g/dL (32.0-36.0); Mean Corpuscular Hemoglobin 29.2 pg (27.0-31.0); Mean Corpuscular Volume 97.4 fL (78.0-98.0); Mean Platelet Volume 9.6 fL (7.4-10.4); Platelet Count 350 10x3/uL (130-400); RBC Distribution Width 16.1 % (11.5-14.5); Red Blood Cell (RBC) Count 3.43 mill/uL (4.20-5.40)
[2024-08-05 03:51] LABS: ALT (SGPT) 13 U/L (8-55); AST (SGOT) 13 U/L (5-34); Albumin 2.7 g/dL (3.4-4.8); Alkaline Phosphatase 78 U/L (40-110); Anion Gap 13 mmol/L (10-20); BUN (Urea Nitrogen) 24 mg/dL (9.8-20.1); Bilirubin, Total 0.2 mg/dL (0.2-1.2); Calc. Creatinine Clearance 110 mL/min (70-130); Calcium 8.5 mg/dL (7.8-10.44); Carbon Dioxide 32 mmol/L (23-31); Chloride 102 mmol/L (98-107); Estimated GFR 75; Globulin 3.3 g/dL (2.4-3.5); Glucose 121 mg/dL (80-115); Sodium 143 mmol/L (136-145)
[2024-08-05] MEDS: dilTIAZem CD 240 MG CAP PO SCH (08:48)
[2024-08-05] MEDS: FLU (Fluad Triv) TS24-25 (65UP)/MF59C/PF 45 MCG/0.5 ML Syringe IM ONE (08:50)
[2024-08-05] MEDS: Cefepime 2 GM in Sodium Chloride 0.9% 100 ML IVPB SCH (11:26)
[2024-08-05] MEDS: Furosemide 20 MG (2 mL) VIAL SLOW IVP SCH (15:50)
[2024-08-06 04:37] LABS: Actual Bicarbonate (HCO3v) 35.7 mEq/L (22-28); Base Excess 8.4 mEq/L (-2.0 to +3.0); Calcium, Ionized (venous) 1.12 mmol/L (1.16-1.32); Chloride (VBG) 100 mmol/L (98-106); Hematocrit-VBG 31 % (36.0-47.0); Hemoglobin (Hb) 10.5 g/dL (11.7-16.1); Potassium (VBG) 3.44 mmol/L (3.70-5.30); Sodium 143 mmol/L (133-146); pH (venous) 7.354 (7.32-7.43)
[2024-08-06 04:52] LABS: #Basophils 0.03 10x3/uL (0.0-0.2); %Basophils 0.3 % (0.0-1.0); %Eosinophils 1.2 % (0.0-10.0); %Lymphocytes 16.2 % (21.0-51.0); %Monocytes 9.1 % (0.0-10.0); %Neutrophils 72.8 % (42.0-75.0); Hematocrit 32.5 % (36.0-47.0); Hemoglobin 9.6 g/dL (12.0-16.0); Mean Corpuscular HGB CONC 29.5 g/dL (32.0-36.0); Mean Corpuscular Hemoglobin 29.4 pg (27.0-31.0); Mean Corpuscular Volume 99.7 fL (78.0-98.0); Mean Platelet Volume 9.2 fL (7.4-10.4); Platelet Count 324 10x3/uL (130-400); RBC Distribution Width 15.9 % (11.5-14.5); Red Blood Cell (RBC) Count 3.26 mill/uL (4.20-5.40)
[2024-08-06 05:47] LABS: BUN (Urea Nitrogen) 19 mg/dL (9.8-20.1); Calc. Creatinine Clearance 112 mL/min (70-130); Calcium 8.6 mg/dL (7.8-10.44); Carbon Dioxide 40 mmol/L (23-31); Estimated GFR 76; Glucose 84 mg/dL (80-115)
[2024-08-06 06:07] LABS: Anion Gap 12 mmol/L (10-20); Chloride 102 mmol/L (98-107); Potassium 3.4 mmol/L (3.5-5.1); Sodium 145 mmol/L (136-145)
[2024-08-06] MEDS: Furosemide 20 MG (2 mL) VIAL SLOW IVP SCH (09:51)
[2024-08-06] MEDS: Ondansetron PF 4 MG/2 ML Vial IVP PRN (17:36)
[2024-08-07 04:06] LABS: #Basophils 0.03 10x3/uL (0.0-0.2); %Basophils 0.3 % (0.0-1.0); %Eosinophils 1.3 % (0.0-10.0); %Lymphocytes 19.4 % (21.0-51.0); %Monocytes 9.2 % (0.0-10.0); %Neutrophils 69.5 % (42.0-75.0); Hematocrit 37.9 % (36.0-47.0); Hemoglobin 11.2 g/dL (12.0-16.0); Mean Corpuscular HGB CONC 29.6 g/dL (32.0-36.0); Mean Corpuscular Hemoglobin 29.2 pg (27.0-31.0); Mean Corpuscular Volume 98.7 fL (78.0-98.0); Mean Platelet Volume 9.8 fL (7.4-10.4); Platelet Count 341 10x3/uL (130-400); RBC Distribution Width 15.7 % (11.5-14.5); Red Blood Cell (RBC) Count 3.84 mill/uL (4.20-5.40)
[2024-08-07] MEDS: Ipratropium/Albuterol 3 ML NEB NEB PRN (07:05)
[2024-08-07 09:05] LABS: Base Excess 2.9 mEq/L (-2.0 to +3.0); Calcium, Ionized (venous) 1.16 mmol/L (1.16-1.32); Chloride (VBG) 97 mmol/L (98-106); Hematocrit-VBG 35 % (36.0-47.0); Hemoglobin (Hb) 11.8 g/dL (11.7-16.1); Potassium (VBG) 3.37 mmol/L (3.70-5.30); Sodium 141 mmol/L (133-146); pH (venous) 7.246 (7.32-7.43)
[2024-08-07 09:26] LABS: Anion Gap 10 mmol/L (10-20); BUN (Urea Nitrogen) 15 mg/dL (9.8-20.1); Calc. Creatinine Clearance 96 mL/min (70-130); Calcium 8.8 mg/dL (7.8-10.44); Carbon Dioxide 36 mmol/L (23-31); Chloride 100 mmol/L (98-107); Estimated GFR 64; Glucose 159 mg/dL (80-115); Potassium 3.3 mmol/L (3.5-5.1); Sodium 143 mmol/L (136-145)
[2024-08-07 10:37] LABS: ALV-art Gradient 107.055 mmHg (0-20); Actual Bicarbonate (HCO3a) 31.4 mEq/L (22-28); CO2 Tension 68.9 mmHg (35.0-45.0); Calcium, Ionized (arterial) 1.21 mmol/L (1.12-1.30); Carboxyhemoglobin (COHb) 1.2 gm% (0.0-3.0); Hematocrit-ABG 34 % (36.0-47.0); Hemoglobin (Hb) 11.6 g/dL (12.0-16.0); O2 Tension (PaO2), arterial 63.5 mmHg (> 70.0); Puncture Site Right Radial artery; pH, Arterial 7.276 (7.35-7.45)
[2024-08-07] MEDS: Azithromycin 500 MG VIAL ONE ×2 (17:03)
[2024-08-07] MEDS: Potassium Chloride 20 MEQ TAB PO SCH (19:19)
[2024-08-08 03:53] LABS: Anion Gap 6 mmol/L (10-20); BUN (Urea Nitrogen) 18 mg/dL (9.8-20.1); Calc. Creatinine Clearance 116 mL/min (70-130); Calcium 8.6 mg/dL (7.8-10.44); Carbon Dioxide 43 mmol/L (23-31); Chloride 97 mmol/L (98-107); Estimated GFR 79; Glucose 83 mg/dL (80-115); Potassium 3.8 mmol/L (3.5-5.1); Sodium 142 mmol/L (136-145)
[2024-08-09] MEDS: Budesonide 0.5 MG/2 ML NEB NEB SCH (18:19)
[2024-08-09] MEDS: Acetaminophen 325 MG TAB PO PRN (23:20)
[2024-08-10 06:13] LABS: #Basophils 0.04 10x3/uL (0.0-0.2); %Basophils 0.2 % (0.0-1.0); %Eosinophils 3.2 % (0.0-10.0); %Lymphocytes 15.3 % (21.0-51.0); %Monocytes 5.7 % (0.0-10.0); %Neutrophils 75.2 % (42.0-75.0); Hematocrit 36.8 % (36.0-47.0); Hemoglobin 11.1 g/dL (12.0-16.0); Mean Corpuscular HGB CONC 30.2 g/dL (32.0-36.0); Mean Corpuscular Hemoglobin 29.2 pg (27.0-31.0); Mean Corpuscular Volume 96.8 fL (78.0-98.0); Mean Platelet Volume 9.5 fL (7.4-10.4); Platelet Count 358 10x3/uL (130-400); RBC Distribution Width 15.5 % (11.5-14.5)
[2024-08-10 06:44] LABS: Anion Gap 14 mmol/L (10-20); BUN (Urea Nitrogen) 27 mg/dL (9.8-20.1); Calc. Creatinine Clearance 111 mL/min (70-130); Calcium 8.5 mg/dL (7.8-10.44); Carbon Dioxide 31 mmol/L (23-31); Chloride 102 mmol/L (98-107); Estimated GFR 73; Glucose 103 mg/dL (80-115); Potassium 3.6 mmol/L (3.5-5.1); Sodium 143 mmol/L (136-145)
[2024-08-10] MEDS: Dronedarone HCl 400 MG TAB PO SCH (09:31)
[2024-08-10] MEDS: predniSONE 20 MG TAB PO SCH (09:31)
[2024-08-10] MEDS ORDERED: Benzonatate 100 MG CAP PO PRN (11:29)
[2024-08-10] MEDS: Furosemide 20 MG TAB PO SCH (13:35)
[2024-08-10] MEDS: Benzonatate 100 MG CAP PO SCH (13:35)
[2024-08-10] MEDS: Doxycycline 100 MG CAP PO SCH (20:16)
[2024-08-10] MEDS: guaiFENesin/DM ER PO SCH (20:18)
[2024-08-10] MEDS ORDERED: guaiFENesin ER 600 MG TAB PO SCH (21:00)
[2024-08-10 22:36] VITALS: BMI 49.9
[2024-08-11 08:14] LABS: #Basophils 0.04 10x3/uL (0.0-0.2); %Basophils 0.2 % (0.0-1.0); %Eosinophils 2.2 % (0.0-10.0); %Lymphocytes 17.1 % (21.0-51.0); %Monocytes 5.5 % (0.0-10.0); %Neutrophils 74.3 % (42.0-75.0); Hematocrit 36.4 % (36.0-47.0); Hemoglobin 10.9 g/dL (12.0-16.0); Mean Corpuscular HGB CONC 29.9 g/dL (32.0-36.0); Mean Corpuscular Hemoglobin 28.8 pg (27.0-31.0); Mean Corpuscular Volume 96.3 fL (78.0-98.0); Mean Platelet Volume 9.5 fL (7.4-10.4); Platelet Count 402 10x3/uL (130-400); RBC Distribution Width 15.5 % (11.5-14.5); Red Blood Cell (RBC) Count 3.78 mill/uL (4.20-5.40)
[2024-08-11 08:21] LABS: Anion Gap 12 mmol/L (10-20); BUN (Urea Nitrogen) 27 mg/dL (9.8-20.1); Calc. Creatinine Clearance 110 mL/min (70-130); Calcium 8.1 mg/dL (7.8-10.44); Carbon Dioxide 35 mmol/L (23-31); Chloride 99 mmol/L (98-107); Estimated GFR 74; Glucose 93 mg/dL (80-115); Potassium 3.5 mmol/L (3.5-5.1); Sodium 142 mmol/L (136-145)
[2024-08-11] MEDS: Furosemide 40 MG TAB PO SCH (09:06)
[2024-08-11 13:35] VITALS: BP 129/97
[2024-08-12 03:48] LABS: #Basophils 0.04 10x3/uL (0.0-0.2); %Basophils 0.3 % (0.0-1.0); %Eosinophils 1.8 % (0.0-10.0); %Lymphocytes 18.1 % (21.0-51.0); %Monocytes 5.5 % (0.0-10.0); %Neutrophils 73.5 % (42.0-75.0); Hemoglobin 9.9 g/dL (12.0-16.0); Mean Corpuscular Hemoglobin 29.1 pg (27.0-31.0); Mean Corpuscular Volume 97.1 fL (78.0-98.0); Mean Platelet Volume 9.2 fL (7.4-10.4); Platelet Count 378 10x3/uL (130-400); RBC Distribution Width 15.6 % (11.5-14.5)
[2024-08-12 04:06] LABS: Anion Gap 10 mmol/L (10-20); BUN (Urea Nitrogen) 31 mg/dL (9.8-20.1); Calc. Creatinine Clearance 94 mL/min (70-130); Calcium 8.2 mg/dL (7.8-10.44); Carbon Dioxide 36 mmol/L (23-31); Chloride 101 mmol/L (98-107); Estimated GFR 61; Glucose 86 mg/dL (80-115); Potassium 3.6 mmol/L (3.5-5.1); Sodium 143 mmol/L (136-145)
[2024-08-12 11:57] VITALS: TEMP 98.3
== END 2024-08-12 14:45 | disposition home health service (06) | DRG 189 ==
LOC: ERS 13:15 → IMCU/EMU 16:05
PROVIDERS: ADMIT Internal Medicine; ATTEND Internal Medicine
PROC: 5A09457 Assistance with Respiratory Ventilation, 24-96 Consecutive Hours, Continuous Positive Airway Pressure (ICD-10-PCS; principal; 2024-08-03)
PROC: 4A033R1 Measurement of Arterial Saturation, Peripheral, Percutaneous Approach (ICD-10-PCS; 2024-08-07)
DX: J96.21 Acute and chronic respiratory failure with hypoxia (principal); G93.41 Metabolic encephalopathy; Z68.42 Body mass index [BMI] 45.0-49.9, adult; J44.1 Chronic obstructive pulmonary disease with (acute) exacerbation; I50.32 Chronic diastolic (congestive) heart failure; E66.2 Morbid (severe) obesity with alveolar hypoventilation; I48.91 Unspecified atrial fibrillation; F41.9 Anxiety disorder, unspecified; F32.A Depression, unspecified; Z79.899 Other long term (current) drug therapy; Z88.8 Allergy status to other drugs, medicaments and biological substances; Z79.82 Long term (current) use of aspirin; Z79.01 Long term (current) use of anticoagulants; Z98.890 Other specified postprocedural states; Z90.710 Acquired absence of both cervix and uterus; Z87.891 Personal history of nicotine dependence; E03.9 Hypothyroidism, unspecified; K21.9 Gastro-esophageal reflux disease without esophagitis; E78.5 Hyperlipidemia, unspecified; Z90.49 Acquired absence of other specified parts of digestive tract; E87.5 Hyperkalemia; I11.0 Hypertensive heart disease with heart failure; C88.00 Waldenstrom macroglobulinemia not having achieved remission
CPT/HCPCS: 36415; 36600; 71045; 80048; 80053; 82805; 83605; 83880; 84145; 84443; 84484; 85025; 87040; 87428; 93005; 93010; 94640; 94760; 96374; 96375; G0378; J0456; J0692; J1940; J2405; J2919; J3370; J3475; J7050; J7512; J7611; J7620; J7626